=== PATIENT | male | born 1960 | race Caucasian/White ===

== ENCOUNTER 2018-09-12 17:20 | Inpatient (IN) | payer OTHER ==
[~2018-09-12] VITALS: Ht 182.9 cm; Wt 138.4 kg
[~2018-09-12 17:20] MED LIST: AMIODARONE HCL200 M1 PO; ASA81 MG PO; HYDROCODONE-AP1 EA10 PO; LEVEMIR100 UNIT/2 SQ; Z.0.COUMADIN7.5 MG PO; Z.0.LIPITOR40 MG PO; Z.0.LOPRESSOR50 MG PO; Z.0.NIACIN500 MG PO; Z.0.NORVASC5 MG PO
--- OUTSIDE RECORDS SUMMARY | 2018-09-12 17:23 | XMS REPORT | Clinical Summary ---
Author Author [facility] Organization [facility] Address Unknown Phone Unavailable Care Team Providers Care Silk Conditioner Name Role Phone Elisa Munguia MD PCP Allergies No Known Allergies Medications End Date Status Medication Sig Dispensed Refills Start Date Active atorvastatin (LIPITOR) 40 0 MG tablet 8 Active naloxone (Narcan) 1 mg/mL 0 injection 7 Active glimepiride (AMARYL) 4 MG 0 tablet 8 Active metoprolol tartrate 0 (LOPRESSOR) 50 mg tablet 7 Active metFORMIN (GLUCOPHAGE) 0 1,000 mg tablet 8 Active donepezil (ARICEPT) 10 MG 0 tablet 7 Active oxybutynin XL (DITROPAN 0 XL) 15 MG 24 hr tablet 8 Active levothyroxine (SYNTHROID, 0 LEVOXYL) 50 mcg tablet 8 Active TRESIBA FLEXTOUCH U-100 0 100 unit/mL (3 mL) 8 insulin pen Active busPIRone (BUSPAR) 30 MG 0 tablet 8 Active escitalopram (LEXAPRO) 20 0 MG tablet 7 Active DULoxetine (CYMBALTA) 60 0 MG capsule 7 Active gabapentin (NEURONTIN) 0 600 mg tablet 8 Active HYDROcodone-acetaminophen 0 (NORCO) 10-325 mg per 8 tablet Active baclofen (LIORESAL) 10 MG 0 tablet 7 Active methadone (DOLOPHINE) 5 0 MG tablet 8 Active lisinopril 0 (PRINIVIL,ZESTRIL) 20 mg 8 tablet Active hydrALAZINE (APRESOLINE) 0 50 MG tablet 8 Active Problems Not on file Family History Medical History Relation Name Comments Heart disease Father Cancer Maternal Grandfather Heart disease Maternal Grandfather Cancer Maternal Grandmother Diabetes Maternal Grandmother Cancer Mother Diabetes Mother Heart disease Mother Hypertension Mother Diabetes Paternal Grandmother Relation Name Status Comments Father Maternal Grandfather Maternal Grandmother Mother Paternal Grandmother Social History Date Tobacco Use Types Packs/Day Years Used Former Smoker Smokeless Tobacco: Former User Alcohol Use Drinks/Week oz/Week Comments Yes Sex Assigned at Date Recorded Not on file Industry Job Start Date Occupation Not on file Not on file Not on file Travel End Travel History Travel Start No recent travel history available. Last Filed Vital Signs Not on file Plan of Treatment Health Maintenance Due Date Last Done Comments COLONOSCOPY SCREENING 2008 SHINGLES VACCINES (#1) 2008 INFLUENZA VACCINE 10/19/2018 Results Not on fileafter 09/11/2017 Insurance Type Payer Benefit Subscriber ID Effective Phone Address Plan / Dates Group HMO TEXAN[employer] TEXANPLUS xxxxxxxxx 2016-P MARISOL clark Advance Directives Patient has advance care planning documents on file. For more information, renita ku contact: Lj Harrington [address] [place] [address]
--- OUTSIDE RECORDS SUMMARY | 2018-09-12 17:24 | XMS REPORT | Continuity of Care Document ---
Author Author [facility] Organization [facility] Address Unknown Phone Unavailable Care Team Providers Care Vendor Analyst Name Role Phone MD Ezra, Elisa ZAMARRIPA Unavailable Insurance Providers Payer name Policy type / Coverage type Policy ID Covered republican ID Policy Alfaro SELECTC[facility] OF [facility] (MEDICARE REPL Encounters Encounter Performer Location Date Office Visit Elisa Munguia MD [facility] Jul 16, 2014 Problems Problem Effective Dates Problem Status BODY MASS INDEX 39.0-39.9, ADULT Jun 17, 2014 Active [facility] Jun 17, 2014 Active HYPERTENSION Jun 17, 2014 Active DIABETES MELLITUS, TYPE II, UNCONTROLLED, WITH COMPLICATIONS Jun 17, 2014 Active HYPERLIPIDEMIA Jun 17, 2014 Active PERSONAL HISTORY OF TRAUMATIC BRAIN INJURY Jun 17, 2014 Active HYPOTHYROIDISM Jun 17, 2014 Active GAIT IMBALANCE Jun 17, 2014 Active SCREENING FOR COLON CANCER Jun 17, 2014 Active PROSTATE NEOPLASM SCREENING Jun 17, 2014 Active SCREENING FOR GLAUCOMA Jun 17, 2014 Active CAD (CORONARY ARTERY DISEASE) Jun 17, 2014 Active HYPERLIPIDEMIA Jun 17, 2014 Inactive DEPRESSION Jun 17, 2014 Active CHRONIC BACK PAIN Jun 17, 2014 Active CHRONIC PAIN SYNDROME Jun 17, 2014 Active DIABETIC NEUROPATHY Jun 17, 2014 Active SLEEP APNEA, OBSTRUCTIVE Jun 17, 2014 Active HX OF SMOKER Jun 17, 2014 Active FREQUENCY, URINARY Jun 17, 2014 Active SCREENING EXAMINATION FOR VENEREAL DISEASE Jun 17, 2014 Active Procedures Date Description Comments Jun 17, 2014 smoking status Former smoker Jun 17, 2014 diabetic foot check yes Jul 16, 2014 smoking status Former smoker Medications Medication Instructions Start Date Status HYDROCODONE-ACETAMINOPHEN 10-325 MG TABS take one to two tablets by mouth every 6 hours as needed for pain Jun 17, 2014 Active CITALOPRAM HYDROBROMIDE 20 MG TABS take one tablet by mouth daily Jun 17, 2014 Active LEVOTHYROXINE SODIUM 25 MCG TABS take one tablet by mouth daily Jun 17, 2014 Active METOPROLOL TARTRATE 50 MG TABS take one tablet by mouth twice a day Jun 17, 2014 Active GABAPENTIN 800 MG TABS take one tablet by mouth three times a day Jun 17, 2014 Active ASPIRIN EC LO-DOSE 81 MG TBEC take one tablet by mouth daily Jun 17, 2014 Active EQ NICOTINE 4 MG LOZG take one tablet by mouth five times a day Jun 17, 2014 Active METFORMIN HCL 850 MG TABS Take one tablet by mouth two times a day Jul 16, 2014 Active GLIPIZIDE 5 MG TABS Take one tablet by mouth two times a day Jul 16, 2014 Active LISINOPRIL 10 MG TABS Take one tablet by mouth once a day Jul 16, 2014 Active ATORVASTATIN CALCIUM 40 MG TABS Take one tablet by mouth once a day Jul 16, 2014 Active Vital Signs Date Description Test Result Jun 17, 2014 weight E&M - 3141-9 WEIGHT 287.38 lb Jun 17, 2014 respiratory rate E&M - 9279-1 RESP RATE 16 /min Jun 17, 2014 height E&M - 8302-2 HEIGHT 72 in Jun 17, 2014 temperature E&M TEMPERATURE 97.4 deg f Jun 17, 2014 pulse rate E&M - 8867-4 PULSE RATE 71 /min Jun 17, 2014 blood pressure, systolic - 8480-6 BP SYSTOLIC 141 mm Hg Jun 17, 2014 blood pressure, diastolic - 8462-4 BP DIASTOLIC 89 mm Hg Jul 16, 2014 temperature E&M TEMPERATURE 96.9 deg f Jul 16, 2014 respiratory rate E&M - 9279-1 RESP RATE 16 /min Jul 16, 2014 blood pressure, systolic - 8480-6 BP SYSTOLIC 159 mm Hg Jul 16, 2014 blood pressure, diastolic - 8462-4 BP DIASTOLIC 80 mm Hg Jul 16, 2014 pulse rate E&M - 8867-4 PULSE RATE 68 /min Jul 16, 2014 height E&M - 8302-2 HEIGHT 72 in Jul 16, 2014 weight E&M - 3141-9 WEIGHT 289.38 lb Results Date Description Test Name Value Reference Interpretation Status Jun 28, 2014 hemoglobin, blood HGB 16.6 g/dL 14.0-18.0 Jun 28, 2014 hematocrit, blood HCT 49.9 % 42.0-54.0 Jun 28, 2014 platelet count PLATELETS 246 K/CMM /mm3 133-450 Jun 28, 2014 urine color UA COLOR Yellow null Yellow Jun 28, 2014 hemoglobin A1C, blood, as % of total hemoglobin HGBA1C 10.6 % <=5.6 High Jun 28, 2014 thyroid stimulating hormone, serum TSH 1.310 uIU/mL 0.360-3.740 Jun 28, 2014 cholesterol, serum CHOLESTEROL 204 mg/dl <=199 High Jun 28, 2014 triglyceride, serum, fasting TRIGLYCERIDE 321 mg/dl <=149 High Jun 28, 2014 HDL cholesterol, serum HDL 38 mg/dl >=61 Low Jun 28, 2014 LDL cholesterol, serum LDL 102 mg/dl <=99 High Jun 28, 2014 sodium, serum SODIUM 135 MEQ/L mmol/L 135-145 Jun 28, 2014 potassium, serum POTASSIUM 4.1 MEQ/L mmol/L 3.5-5.1 Jun 28, 2014 creatinine, serum CREATININE 1.0 mg/dL 0.5-1.4 Jun 28, 2014 urea nitrogen, blood BUN 15 mg/dL 7-22 Jun 28, 2014 urea nitrogen/creatinine ratio, serum BUN/CREAT 15 null 6-25 Jun 28, 2014 albumin, serum ALBUMIN 3.8 g/dL 3.5-5.0 Jun 28, 2014 calcium, serum CALCIUM 9.8 mg/dL 8.5-10.5 Jun 28, 2014 alanine aminotransferase (SGPT), serum SGPT (ALT) 46 U/L 0-65 Jun 28, 2014 aspartate aminotransferase (SGOT), serum SGOT (AST) 21 U/L 0-37 Jun 28, 2014 alkaline phosphatase, serum ALK PHOS 78 U/L 39-136 Jun 28, 2014 prostate specific antigen PSA 0.56 ng/mL 0.00-4.00 Jul 02, 2014 occult blood, stool (E&M) HEMOCCULT Negative null Negative Jul 03, 2014 occult blood, stool (E&M) HEMOCCULT Negative null Negative Jul 04, 2014 occult blood, stool (E&M) HEMOCCULT Negative null Negative Jun 28, 2014 rapid plasma reagin antibody, serum RPR Non Reactive null Non Reactive
--- OUTSIDE RECORDS SUMMARY | 2018-09-12 17:24 | XMS REPORT | Continuity of Care Document ---
Author Author [facility] Interface Address Unknown Phone Unavailable Problems Problem Status Onset Date Classification Date Reported Comments Source NEED FOR PROPHYLACTIC VACCINATION AGAINST STREPTOCOCCUS PNEUMONIAE [PNEUMOCOCCUS] Active 08/20/2014 Condition 10/25/2014 Medical Group BENIGN PROSTATIC HYPERTROPHY Active 08/20/2014 Condition 10/25/2014 [facility] ERECTILE DYSFUNCTION Active 08/20/2014 Condition 10/25/2014 [facility] BODY MASS INDEX 39.0-39.9, ADULT Active 06/17/2014 Condition 10/25/2014 [facility] PREVENTIVE HEALTH CARE Active 06/17/2014 Condition 10/25/2014 [facility] HYPERTENSION Active 06/17/2014 Condition 10/25/2014 Medical Group DIABETES MELLITUS, TYPE II, WITH COMPLICATIONS Active 06/17/2014 Condition 07/04/2014 Medical [facility] HYPERLIPIDEMIA Active 06/17/2014 Condition 10/25/2014 [facility] PERSONAL HISTORY OF TRAUMATIC BRAIN INJURY Active 06/17/2014 Condition 10/25/2014 Medical Group HYPOTHYROIDISM Active 06/17/2014 Condition 10/25/2014 Medical [facility] GAIT IMBALANCE Active 06/17/2014 Condition 10/25/2014 [facility] SCREENING FOR COLON CANCER Active 06/17/2014 Condition 10/25/2014 [facility] PROSTATE NEOPLASM SCREENING Active 06/17/2014 Condition 10/25/2014 Medical [facility] SCREENING FOR GLAUCOMA Active 06/17/2014 Condition 10/25/2014 Medical Group CAD Active 06/17/2014 Condition 10/25/2014 Medical Group DEPRESSION Active 06/17/2014 Condition 10/25/2014 Medical Group CHRONIC BACK PAIN Active 06/17/2014 Condition 10/25/2014 Medical Group CHRONIC PAIN SYNDROME Active 06/17/2014 Condition 10/25/2014 [facility] Group DIABETIC NEUROPATHY Active 06/17/2014 Condition 10/25/2014 Medical [facility] SLEEP APNEA, OBSTRUCTIVE Active 06/17/2014 Condition 10/25/2014 Medical [facility] HX OF SMOKER Active 06/17/2014 Condition 10/25/2014 Medical Group FREQUENCY, URINARY Active 06/17/2014 Condition 10/25/2014 [facility] SCREENING EXAMINATION FOR VENEREAL DISEASE Active 06/17/2014 Condition 10/25/2014 Medical Group DIABETES MELLITUS, TYPE II, UNCONTROLLED, WITH COMPLICATIONS Active 06/17/2014 Condition 10/25/2014 [facility] Medications Medication Details Route Status Patient Instructions Ordering Provider Order Date Source CIALIS 20 MG TABS May take half of the tablet as needed as directed Active 08/20/2014 [facility] METFORMIN HCL 850 MG TABS Take one tablet by mouth two times a day Active 07/16/2014 [facility] GLIPIZIDE 5 MG TABS Take one tablet by mouth two times a day Active 07/16/2014 [facility] ATORVASTATIN CALCIUM 40 MG TABS Take one tablet by mouth once a day Active 07/16/2014 [facility] LISINOPRIL 10 MG TABS Take one tablet by mouth two times a day Active 07/16/2014 [facility] METFORMIN HCL 850 MG TABS Take one tablet by mouth two times a day Active 07/16/2014 [facility] GLIPIZIDE 5 MG TABS Take one tablet by mouth two times a day Active 07/16/2014 [facility] LISINOPRIL 10 MG TABS Take one tablet by mouth two times a day Active 07/16/2014 [facility] ATORVASTATIN CALCIUM 40 MG TABS Take one tablet by mouth once a day Active 07/16/2014 [facility] LISINOPRIL 10 MG TABS Take one tablet by mouth two times a day Active 07/16/2014 [facility] HYDROCODONE-ACETAMINOPHEN 10-325 MG TABS take one to two tablets by mouth every 6 hours as needed for pain Active 06/17/2014 [facility] CITALOPRAM HYDROBROMIDE 20 MG TABS take one tablet by mouth daily Active 06/17/2014 [facility] LEVOTHYROXINE SODIUM 25 MCG TABS take one tablet by mouth daily Active 06/17/2014 [facility] METOPROLOL TARTRATE 50 MG TABS take one tablet by mouth twice a day Active 06/17/2014 [facility] GABAPENTIN 800 MG TABS take one tablet by mouth three times a day Active 06/17/2014 [facility] ASPIRIN EC LO-DOSE 81 MG TBEC take one tablet by mouth daily Active 06/17/2014 [facility] EQ NICOTINE 4 MG LOZG take one tablet by mouth five times a day Active 06/17/2014 [facility] HYDROCODONE-ACETAMINOPHEN 10-325 MG TABS take one to two tablets by mouth every 6 hours as needed for pain Active 06/17/2014 Medical Group METOPROLOL TARTRATE 50 MG TABS take one tablet by mouth twice a day Active 06/17/2014 Medical Group GABAPENTIN 800 MG TABS take one tablet by mouth three times a day Active 06/17/2014 [facility] Group Allergies, Adverse Reactions, Alerts Substance Category Reaction Severity Reaction type Status Date Reported Comments Source Immunizations Immunization Date Given Site Status Last Updated Comments Source Results Order Name Results Value Reference Range Date Interpretation Comments Source Chemistry HGBA1C 7.7 % - 5.6 10/18/2014 [facility] Chemistry CHOLESTEROL 98 mg/dl - 199 10/18/2014 [facility] Chemistry TRIGLYCERIDE 120 mg/dl - 149 10/18/2014 [facility] Chemistry HDL 31 mg/dl >=61 10/18/2014 Medical [facility] Chemistry LDL 43 mg/dl - 99 10/18/2014 [facility] Chemistry SODIUM 141 MEQ/L mmol/L 135 - 145 10/18/2014 [facility] Chemistry POTASSIUM 4.8 MEQ/L mmol/L 3.5 - 5.1 10/18/2014 [facility] Chemistry CREATININE 1.0 mg/dL 0.5 - 1.4 10/18/2014 [facility] Chemistry BUN 13 mg/dL 7 - 22 10/18/2014 [facility] Chemistry BUN/CREAT 13 6 - 25 10/18/2014 [facility] Chemistry ALBUMIN 3.3 g/dL 3.5 - 5.0 10/18/2014 [facility] Chemistry CALCIUM 8.4 mg/dL 8.5 - 10.5 10/18/2014 [facility] Chemistry SGPT (ALT) 29 U/L 0 - 65 10/18/2014 Medical [facility] Chemistry SGOT (AST) 14 U/L 0 - 37 10/18/2014 [facility] Chemistry ALK PHOS 61 U/L 39 - 136 10/18/2014 [facility] Chemistry HEMOCCULT Negative 07/04/2014 [facility] Chemistry HEMOCCULT Negative 07/03/2014 [facility] Chemistry HEMOCCULT Negative 07/02/2014 Medical [facility] Chemistry HGBA1C 10.6 % - 5.6 06/28/2014 [facility] Chemistry TSH 1.310 uIU/mL 0.360 - 3.740 06/28/2014 [facility] Chemistry CHOLESTEROL 204 mg/dl - 199 06/28/2014 Medical [facility] Chemistry TRIGLYCERIDE 321 mg/dl - 149 06/28/2014 Medical [facility] Chemistry HDL 38 mg/dl >=61 06/28/2014 Medical [facility] Chemistry LDL 102 mg/dl - 99 06/28/2014 [facility] Chemistry SODIUM 135 MEQ/L mmol/L 135 - 145 06/28/2014 [facility] Chemistry POTASSIUM 4.1 MEQ/L mmol/L 3.5 - 5.1 06/28/2014 Medical [facility] Chemistry CREATININE 1.0 mg/dL 0.5 - 1.4 06/28/2014 Medical [facility] Chemistry BUN 15 mg/dL 7 - 22 06/28/2014 Medical [facility] Chemistry BUN/CREAT 15 6 - 25 06/28/2014 Medical [facility] Chemistry ALBUMIN 3.8 g/dL 3.5 - 5.0 06/28/2014 [facility] Chemistry CALCIUM 9.8 mg/dL 8.5 - 10.5 06/28/2014 Medical [facility] Chemistry SGPT (ALT) 46 U/L 0 - 65 06/28/2014 Medical [facility] Chemistry SGOT (AST) 21 U/L 0 - 37 06/28/2014 Medical [facility] Chemistry ALK PHOS 78 U/L 39 - 136 06/28/2014 [facility] Chemistry PSA 0.56 ng/mL 0.00 - 4.00 06/28/2014 Medical [facility] Hematology HGB 16.6 g/dL 14.0 - 18.0 06/28/2014 Medical [facility] Hematology HCT 49.9 % 42.0 - 54.0 06/28/2014 Medical [facility] Hematology PLATELETS 246 K/CMM /mm3 133 - 450 06/28/2014 Medical [facility] Serology RPR Non Reactive 06/28/2014 Medical [facility] Serology RPR Non Reactive 06/28/2014 Medical [facility] Serology RPR Non Reactive 06/28/2014 Medical [facility] Urinalysis UA COLOR Yellow 06/28/2014 Medical [facility] Vital Signs Vital Sign Value Date Comments Source Height 72 08/20/2014 Medical [facility] Weight 289.50 08/20/2014 Medical [facility] Respitory Rate 16 08/20/2014 Medical Group Systolic (mm Hg) 123 08/20/2014 Medical [facility] Diastolic (mm Hg) 87 08/20/2014 Medical [facility] Heart Rate 81 08/20/2014 Medical [facility] Temperature Oral (F) 97.1 F 08/20/2014 Medical Group Temperature Oral (F) 96.9 F 07/16/2014 Medical Group Respitory Rate 16 07/16/2014 [facility] Group Systolic (mm Hg) 159 07/16/2014 Medical Group Diastolic (mm Hg) 80 07/16/2014 Medical Group Heart Rate 68 07/16/2014 Medical Group Height 72 07/16/2014 Medical Group Weight 289.38 07/16/2014 Medical Group Weight 287.38 06/17/2014 Medical Group Respitory Rate 16 06/17/2014 Medical Group Height 72 06/17/2014 [facility] Temperature Oral (F) 97.4 F 06/17/2014 Medical Group Heart Rate 71 06/17/2014 Medical Group Systolic (mm Hg) 141 06/17/2014 [facility] Group Diastolic (mm Hg) 89 06/17/2014 Medical Group Encounters Location Location Details Encounter Type Encounter Number Reason For Visit Attending Provider ADM Date DC Date Status Source [facility] Office Visit [id number] Elisa Langley MD 06/17/2014 06/17/2014 Medical Group [facility] Lab Report [id number] Elisa Langley MD 06/28/2014 06/28/2014 Medical [facility] Medical [facility] Lab Report [id number] Elisa Langley MD 07/04/2014 07/04/2014 Medical [facility] Medical [facility] Office Visit [id number] Elisa Langley MD 07/16/2014 07/16/2014 Medical [facility] Medical [facility] Office Visit [id number] Elisa Langley MD 08/20/2014 08/20/2014 Medical [facility] Medical [facility] Lab Report [id number] Elisa Langley MD 10/18/2014 10/18/2014 Medical [facility] Medical [facility] Office Visit [id number] Elisa Langley MD 10/25/2014 10/25/2014 Medical Group Outpatient [id number] ELISA LANGLEY 10/25/2014 Active [facility] Outpatient [id number] SAULO PERRY 02/24/2015 Active [facility] [id number] ELISA LANGLEY 05/26/2015 Active [facility] [id number] ELISA LANGLEY 07/01/2015 Active [facility] [id number] LEISA LANGLEY 10/17/2015 Active [facility] [id number] ELISA LANGLEY 01/19/2016 Active [facility] [id number] ELISA LANGLEY 04/20/2016 Active [facility] [id number] ELISA LANGLEY 07/15/2016 Active [facility] [id number] ELISA LANGLEY 09/14/2016 Active [facility] [id number] ELISA LANGLEY 10/13/2016 Active [facility] [id number] ELISA LANGLEY 12/22/2016 Active [facility] [id number] ELISA LANGLEY 03/24/2017 Active [facility] [id number] ELISA LANGLEY 06/24/2017 Active [facility] [id number] ELISA LANGLEY 07/22/2017 Active [facility] [id number] ELISA LANGLEY 10/21/2017 Active [facility] [id number] ELISA LANGLEY 01/20/2018 Active [facility] [id number] ELISA LANGLEY 04/21/2018 Active [facility] [id number] Elisa Langley 06/26/2018 Active [facility] [id number] Elisa Langley 07/24/2018 Active [facility] [id number] Elisa Langley 10/23/2018 Active [facility] Procedures Procedure Code Date Perfomer Comments Source diabetic foot check [id number] 06/17/2014 yes Medical Group
--- OUTSIDE RECORDS SUMMARY | 2018-09-12 17:24 | XMS REPORT | Continuity of Care Document ---
Author Author [facility] Organization [facility] Address Unknown Phone Unavailable Care Team Providers Care Federal Mediation Commissioner Name Role Phone MD Ezra, Elisa ZAMARRIPA Unavailable Insurance Providers Payer name Policy type / Coverage type Policy ID Covered libertarian ID Policy Alfaro SELECTCARE OF [place] [facility] [place] [facility]US (MEDICARE REPL Encounters Encounter Performer Location Date Lab Report Elisa Munguia MD [facility] Jun 28, 2014 Problems Problem Effective Dates Problem Status BODY MASS INDEX 39.0-39.9, ADULT Jun 17, 2014 Active [facility] Jun 17, 2014 Active HYPERTENSION Jun 17, 2014 Active DIABETES MELLITUS, TYPE II, WITH COMPLICATIONS Jun 17, 2014 Active HYPERLIPIDEMIA [...] 2014 Active HYPERLIPIDEMIA Jun 17, 2014 Active DEPRESSION Jun 17, 2014 Active CHRONIC BACK [...] Jun 17, 2014 diabetic foot check yes Medications Medication Instructions Start Date Status HYDROCODONE-ACETAMINOPHEN [...] times a day Jun 17, 2014 Active Vital Signs Date Description Test [...] - 8462-4 BP DIASTOLIC 89 mm Hg Results Date Description Test Name Value Reference [...] prostate specific antigen PSA 0.56 ng/mL 0.00-4.00 Jun 28, 2014 rapid plasma reagin antibody, serum RPR Non Reactive null Non Reactive
--- OUTSIDE RECORDS SUMMARY | 2018-09-12 17:24 | XMS REPORT | Continuity of Care Document ---
Author Author [facility] Organization [facility] Address Unknown Phone Unavailable Care Team Providers Care Firearms Expert Name Role Phone MD Ezra, Elisa ZAMARRIPA Unavailable Insurance Providers Payer name Policy type / Coverage type Policy ID Covered alliance party ID Policy Alfaro [place] (MEDICARE REPL Encounters Encounter Performer Location Date Lab Report Elisa Munguia MD [facility] Oct 18, 2014 Problems Problem Effective Dates Problem Status [...] FOR VENEREAL DISEASE Jun 17, 2014 Active NEED FOR PROPHYLACTIC VACCINATION AGAINST STREPTOCOCCUS PNEUMONIAE [PNEUMOCOCCUS] Aug 20, 2014 Active BENIGN PROSTATIC HYPERTROPHY Aug 20, 2014 Active ERECTILE DYSFUNCTION Aug 20, 2014 Active Procedures Date Description Comments Jun 17, 2014 smoking status Former smoker Jun 17, 2014 diabetic foot check yes Jul 16, 2014 smoking status Former smoker Aug 20, 2014 smoking status Former smoker Medications Medication [...] times a day Jul 16, 2014 Active ATORVASTATIN CALCIUM 40 MG TABS Take one tablet by mouth once a day Jul 16, 2014 Active LISINOPRIL 10 MG TABS Take one tablet by mouth two times a day Jul 16, 2014 Active CIALIS 20 MG TABS May take half of the tablet as needed as directed Aug 20, 2014 Active Vital Signs Date Description Test [...] weight E&M - 3141-9 WEIGHT 289.38 lb Aug 20, 2014 height E&M - 8302-2 HEIGHT 72 in Aug 20, 2014 weight E&M - 3141-9 WEIGHT 289.50 lb Aug 20, 2014 respiratory rate E&M - 9279-1 RESP RATE 16 /min Aug 20, 2014 blood pressure, systolic - 8480-6 BP SYSTOLIC 123 mm Hg Aug 20, 2014 blood pressure, diastolic - 8462-4 BP DIASTOLIC 87 mm Hg Aug 20, 2014 pulse rate E&M - 8867-4 PULSE RATE 81 /min Aug 20, 2014 temperature E&M TEMPERATURE 97.1 deg f Results Date Description Test Name Value Reference [...] blood, stool (E&M) HEMOCCULT Negative null Negative Oct 18, 2014 hemoglobin A1C, blood, as % of total hemoglobin HGBA1C 7.7 % <=5.6 High Oct 18, 2014 cholesterol, serum CHOLESTEROL 98 mg/dl <=199 Oct 18, 2014 triglyceride, serum, fasting TRIGLYCERIDE 120 mg/dl <=149 Oct 18, 2014 HDL cholesterol, serum HDL 31 mg/dl >=61 Low Oct 18, 2014 LDL cholesterol, serum LDL 43 mg/dl <=99 Oct 18, 2014 sodium, serum SODIUM 141 MEQ/L mmol/L 135-145 Oct 18, 2014 potassium, serum POTASSIUM 4.8 MEQ/L mmol/L 3.5-5.1 Oct 18, 2014 creatinine, serum CREATININE 1.0 mg/dL 0.5-1.4 Oct 18, 2014 urea nitrogen, blood BUN 13 mg/dL 7-Oct 18, 2014 urea nitrogen/creatinine ratio, serum BUN/CREAT 13 null 6-25 Oct 18, 2014 albumin, serum ALBUMIN 3.3 g/dL 3.5-5.0 Low Oct 18, 2014 calcium, serum CALCIUM 8.4 mg/dL 8.5-10.5 Low Oct 18, 2014 alanine aminotransferase (SGPT), serum SGPT (ALT) 29 U/L 0-65 Oct 18, 2014 aspartate aminotransferase (SGOT), serum SGOT (AST) 14 U/L 0-37 Oct 18, 2014 alkaline phosphatase, serum ALK PHOS 61 U/L 39-136 Jun 28, 2014 rapid plasma reagin antibody, serum RPR Non Reactive null Non Reactive
--- OUTSIDE RECORDS SUMMARY | 2018-09-12 17:24 | XMS REPORT | Continuity of Care Document ---
Author Author [facility] Organization [facility] Address Unknown Phone Unavailable Care Team Providers Care Supervisor Molding Name Role Phone MD Ezra, Elisa ZAMARRIPA Unavailable Insurance Providers Payer name Policy type / Coverage type Policy ID Covered green party ID Policy Alfaro [facility] ([facility]IC[facility] REPL Encounters Encounter Performer Location Date Office Visit Elisa Munguia MD [facility] Jun 17, 2014 Problems Problem Effective Dates Problem Status [...]
--- OUTSIDE RECORDS SUMMARY | 2018-09-12 17:24 | XMS REPORT | Continuity of Care Document ---
Author Author [facility] Organization [facility] Address Unknown Phone Unavailable Care Team Providers Care Fabric Inspector Name Role Phone MD Ezra, Elisa ZAMARRIPA Unavailable Insurance Providers Payer name Policy type / Coverage type Policy ID Covered democrat ID Policy Alfaro SELECTCARE OF [place] - [place] PL[place] (MEDICARE REPL Encounters Encounter Performer Location Date Lab Report Elisa Munguia MD [facility] Jul 04, 2014 Problems Problem Effective Dates Problem Status [...]
--- OUTSIDE RECORDS SUMMARY | 2018-09-12 17:24 | XMS REPORT | Continuity of Care Document ---
Author Author [facility] Organization [facility] Address Unknown Phone Unavailable Care Team Providers Care Architect Name Role Phone MD Ezra, Elisa ZAMARRIPA Unavailable Insurance Providers Payer name Policy type / Coverage type Policy ID Covered democrat ID Policy Alfaro [facility] (MEDICARE REPL Encounters Encounter Performer Location Date Office Visit Elisa Munguia MD [facility] Oct 25, 2014 Problems Problem Effective Dates Problem Status [...]
--- OUTSIDE RECORDS SUMMARY | 2018-09-12 17:24 | XMS REPORT | Continuity of Care Document ---
Author Author [facility] Organization [facility] Address Unknown Phone Unavailable Care Team Providers Care Automotive Worker Name Role Phone MD Ezra, Elisa ZAMARRIPA Unavailable Insurance Providers Payer name Policy type / Coverage type Policy ID Covered democrat ID Policy Alfaro [facility] (MEDICARE REPL Encounters Encounter Performer Location Date Office Visit Elisa Munguia MD [facility] Aug 20, 2014 Problems Problem Effective Dates Problem Status [...]
[2018-09-12] MEDS ORDERED: SODIUM CHLORIDE 0.9% 1000ML 1,000 ML IV STA (18:36)
[2018-09-12 18:51] LABS: BASOPHILS % 0.3 % (0.0-1.0); EOSINOPHILS # (AUTO) 0.3 (0.0-0.4); EOSINOPHILS % 2.4 % (0.0-6.0); HEMATOCRIT 36.8 % (38.2-49.6); HEMOGLOBIN 11.9 g/dL (14.0-18.0); LYMPHOCYTES # (AUTO) 1.8 (1.0-3.2); LYMPHOCYTES % 16.8 % (18.0-39.1); MEAN CORPUSCULAR HEMOGLOBIN 29.1 pg (28-32); MEAN CORPUSCULAR HGB CONC 32.3 g/dL (31-35); MONOCYTES # (AUTO) 0.9 (0.2-0.8); MONOCYTES % 8.2 % (4.4-11.3); NEUTROPHILS # (AUTO) 7.9 (2.1-6.9); NEUTROPHILS % 71.9 % (38.7-80.0); PLATELET COUNT 291 x10e3/uL (140-360); RED BLOOD COUNT 4.09 x10e6/uL (4.3-5.7); RED CELL DISTRIBUTION WIDTH 14.1 % (11.7-14.4)
[2018-09-12 18:56] LABS: INR 0.93
[2018-09-12 19:04] LABS: ALANINE AMINOTRANSFERASE 86 IU/L (0-55); ALBUMIN 3.2 g/dL (3.5-5.0); ALBUMIN/GLOBULIN RATIO 0.8 (0.8-2.0); ALKALINE PHOSPHATASE 65 IU/L (40-150); ANION GAP 13.7 mmol/L (8-16); BLOOD UREA NITROGEN 17 mg/dL (7-26); BUN/CREATININE RATIO 19 (6-25); CALCIUM 9.3 mg/dL (8.4-10.2); CARBON DIOXIDE 27 mmol/L (22-29); CHLORIDE 101 mmol/L (98-107); CREATINE KINASE 70 IU/L (30-200); CREATININE, SERUM 0.88 mg/dL (0.72-1.25); EST GLOMERULAR FILTRATION RATE > 60 ML/MIN (60-); GLUCOSE 164 mg/dL (74-118); MAGNESIUM 2.1 MG/DL (1.3-2.1); POTASSIUM 4.7 mmol/L (3.5-5.1); SODIUM 137 mmol/L (136-145)
--- NOTE | 2018-09-12 19:14 | NUR ---
pt awake alert skin w/d resp nonlab, nad noted. inst on need for urine, verbalized understanding. urinal at bedside. 1L NS bolus started per orders
--- NOTE | 2018-09-12 19:17 | Diagnostic Imaging Report ---
EXAMINATION: CHEST SINGLE (PORTABLE) INDICATION: Shortness of breath ^SOB ^[id number] ^1855 COMPARISON: None FINDINGS: TUBES and LINES: Sternal wires. Likely external wires over the right and upper chest LUNGS: Perihilar peribronchial hazy opacity likely due to pulmonary edema. PLEURA: Possible small pleural effusions. No pneumothorax. HEART AND MEDIASTINUM: Cardiomegaly with pulmonary vascular congestion BONES AND SOFT TISSUES: No acute osseous lesion. Soft tissues are unremarkable. UPPER ABDOMEN: No free air under the diaphragm. IMPRESSION: Findings consistent with congestive heart failure. Follow-up imaging is indicated to document clearing. Signed by: Dr. Thang Lawrence M.D. on 09/12/2018 7:14 PM
--- NOTE | 2018-09-12 19:38 | Diagnostic Imaging Report ---
History:Dizziness Comparison studies: None Technique: Axial images were obtained from the skull base to the vertex. Coronal and sagittal images reconstructed from the axial data. Dose modulation, iterative reconstruction, and/or weight based adjustment of the mA/kV was utilized to reduce the radiation dose to as low as reasonably achievable. Intravenous contrast: None Findings: Scalp/skull: No abnormalities. Extra-axial spaces: No masses. No fluid collections. Brain sulci: Mildly prominent. Ventricles: Mild compensatory dilatation. No hydrocephalus. Parenchyma: No abnormal densities. No masses, hemorrhage, acute or chronic cortical vascular insults. Sellar/suprasellar region: No abnormalities. Craniocervical junction: Patent foramen magnum. No Chiari one malformation. Incidental findings: Atherosclerotic calcifications in the carotid siphons . Impression: 1. No acute abnormalities. 2. Mild age-related generalized volume loss. Signed by: Dr. Juan Porter M.D. on 09/12/2018 7:35 PM
[2018-09-12] MEDS ORDERED: ASPIRIN 81 MG CHEW TAB PO ONE (20:15)
[2018-09-12] MEDS ORDERED: DEXTROSE 50% SYRINGE 50 ML IV PRN (20:15)
[2018-09-12] MEDS ORDERED: SODIUM CHLORIDE FLUSH 10 ML SYR INJ PRN (20:15)
[2018-09-12] MEDS ORDERED: HYDROCODONE/APAP 10MG-325MG TAB PO PRN (20:15)
[2018-09-12] MEDS ORDERED: FUROSEMIDE INJ 10 MG/ML 4 ML VIAL IV NR (20:15)
[2018-09-12] MEDS ORDERED: HYDROCODONE/APAP 10MG-325MG TAB PO NR (20:15)
--- NOTE | 2018-09-12 20:20 | NUR ---
600CC NS INFUSED, STOPPED BOLUS PER DR GUIDRY INSRUCTION
--- OUTSIDE RECORDS SUMMARY | 2018-09-12 20:32 | XMS REPORT ---
Author Author [facility] Address Unknown Phone Unavailable Care Team Providers Care Industrial Machine Assembler Name Role Phone Liya ROBLES Unavailable Unavailable Problems This patient has no known problems. Allergies, Adverse Reactions, Alerts This patient has no known allergies or adverse reactions. Medications This patient has no known medications. Results Test Description Test Time Test Comments Text Results Atomic Results Result Comments CT BRAIN WO 2018-09-12 19:33:00 [place] [address] Patient Name: JANESSA ANTHONY MR #: [id number] : 1960 Age/Sex: 57/M Req #: [id number] Adm Physician: Ordered by: RIGOBERTO ROBLES MD Report #: [id number] Location: ER Room/Bed: Procedure: [id number] CT/CT BRAIN WO Exam Date: 09/12/18 Exam Time: 5 REPORT STATUS: Signed History:Dizziness Comparison studies: None Technique: Axial images were obtained from the skull base to the vertex. Coronal and sagittal images reconstructed from the axial data. Dose modulation, iterative reconstruction, and/or weight based adjustment of the mA/kV was utilized to reduce the radiation dose to as low as reasonably achievable. Intravenous contrast: None Findings: Scalp/skull: No abnormalities. Extra-axial spaces: No masses. No fluid collections. Brain sulci: Mildly prominent. Ventricles: Mild compensatory dilatation. No hydrocephalus. Parenchyma: No abnormal densities. No masses, he morrhage, acute or chronic cortical vascular insults. Sellar/suprasellar region: No abnormalities. Craniocervical junction: Patent foramen magnum. No Chiari one malformation. Incidental findings: Atherosclerotic calcifications in the carotid siphons . Impression: 1. No acute abnormalities. 2. Mild age-related generalized volume loss. Signed by: Dr. Juan Porter M.D. on 09/12/2018 7:35 PM Dictated By: JUAN PORTER MD, MD 34 Transcribed By: JAMILAH on 09/12/181934 COPY TO: RIGOBERTO ROBLES MD CHEST SINGLE (PORTABLE) 2018-09-12 19:13:00 [place] [address] Patient Name: JANESSA ANTHONY MR #: [id number] : 1960 Age/Sex: 57/M Req #: [id number] Adm Physician: Ordered by: IRGOBERTO ROBLES MD Report #: [id number] Location: ER Room/Bed: Procedure: [id number] DX/CHEST SINGLE (PORTABLE) Exam Date: 09/12/18 Exam Time: 1854 REPORT STATUS: Signed EXAMINATION: CHEST SINGLE (PORTABLE) INDICATI ON: Shortness of breath SOB [id number] COMPARISON: None FINDINGS: TUBES and LINES: Sternal wires. Likely external wires over the right and upper chest LUNGS: Perihilar peribronchial hazy opacity likely due to pulmonary edema. PLEURA: Possible small pleural effusions. No pneumothorax. HEART AND MEDIASTINUM: Cardiomegaly with pulmonary vascular congestion BONES AND SOFT TISSUES: No acute osseous lesion. Soft tissues are unremarkable. UPPER ABDOMEN: No free air under the diaphragm. IMPRESSION: Findings consistent with congestive heart failure. Follow-up imaging is indicated to document clearing. Signed by: Dr. Thang Lawrence M.D. on 09/12/2018 7:14 PM Dictated By: THANG LAWRENCE MD, MD 13 Transcribed By: JAMILAH on 09/12/181913 COPY TO: RIGOBERTO ROBLES MD
--- OUTSIDE RECORDS SUMMARY | 2018-09-12 20:32 | XMS REPORT | Clinical Summary ---
Author Author [facility] Organization [facility] Address Unknown Phone Unavailable Care Team Providers Care Internet Architect Name Role Phone Elisa Munguia MD PCP [...] planning documents on file. For more information, ernita ku contact: Lj Harrington [address] [place] [address]
[2018-09-12] MEDS ORDERED: LEVOTHYROXINE75 MCG PO (20:37)
[2018-09-12] MEDS ORDERED: METOPROLOL TART50 MG PO (20:37)
[2018-09-12] MEDS ORDERED: HYDRALAZINE HC100 MG PO (20:37)
[2018-09-12] MEDS ORDERED: METHADONE HCL5 MG PO (20:37)
[2018-09-12] MEDS ORDERED: DIVALPROEX SOD500 MG PO (20:37)
[2018-09-12] MEDS ORDERED: GLIMEPIRIDE4 MG PO (20:37)
[2018-09-12] MEDS ORDERED: TRESIBA SC (20:37)
[2018-09-12] MEDS ORDERED: ATORVASTATIN CA40 MG PO (20:37)
[2018-09-12] MEDS ORDERED: METFORMIN HCL1000 MG PO (20:37)
[2018-09-12] MEDS ORDERED: BUSPIRONE HCL30 MG PO (20:37)
[2018-09-12] MEDS ORDERED: HYDROXYZINE HCL25 MG PO (20:37)
[2018-09-12] MEDS ORDERED: OXYBUTYNIN CHLO15 MG PO (20:37)
[2018-09-12] MEDS ORDERED: HYDROCODON-ACE1 EAC9 PO (20:37)
[2018-09-12] MEDS ORDERED: GABAPENTIN600 MG PO (20:37)
[2018-09-12] MEDS ORDERED: NOVOLOG100 UNITS1 (20:37)
[2018-09-12] MEDS: INSULIN REGULAR, HUMAN 100 UNIT/1 ML 3ML VIAL SQ SCH (21:00)
[2018-09-12] MEDS ORDERED: LISINOPRIL5 MG PO (21:16)
[2018-09-12] MEDS ORDERED: CYMBALTA30 MG PO (21:16)
[2018-09-12] MEDS ORDERED: BACLOFEN10 MG PO (21:16)
[2018-09-12] MEDS ORDERED: ASPIRIN325 MG PO (21:16)
[2018-09-12 21:18] LABS: BILIRUBIN,URINE NEGATIVE (NEGATIVE); CLARITY,URINE SL CLOUDY (CLEAR); COLOR,URINE YELLOW (YELLOW); KETONES,URINE NEGATIVE (NEGATIVE); LEUKOCYTE ESTERASE ,URINE SMALL (NEGATIVE); NITRITE,URINE NEGATIVE (NEGATIVE); PROTEIN,URINE DIPSTICK NEGATIVE (NEGATIVE); URINE UROBILINOGEN 0.2 mg/dL (0.2 - 1)
--- NOTE | 2018-09-12 21:35 | NUR ---
Patient arrived from er in a wheel chair to the unit.aaox3.ambulates with cane.assessment done.no resp.distress.has shortness of breath.back pain voiced @ 8/10.lower extremity edema +1 noted.voided.iv to right ac #20 g is patent.oriented to the unit.bed locked and in lowest position.bed alarm on.phone and call light within reach.instructed to call for assistance as needed.keep monitor the pt.
[2018-09-12 21:36] LABS: BACTERIA,URINE MODERATE /HPF; EPITHELIAL CELLS,URINE MODERATE /LPF; WBC,URINE (MAN) >50 /HPF (0-5)
[2018-09-12 21:38] VITALS: BP 128/92
[2018-09-12 22:00] VITALS: BP 128/92
[2018-09-12 22:44] VITALS: BP 128/92
[2018-09-12] MEDS ORDERED: HYDROXYZINE HCL 25 MG TAB PO PRN (22:45)
[2018-09-12] MEDS ORDERED: METHADONE HCL 5 MG TAB PO ONE (23:15)
[2018-09-13 03:18] LABS: BASOPHILS % 0.4 % (0.0-1.0); EOSINOPHILS # (AUTO) 0.3 (0.0-0.4); HEMATOCRIT 34.1 % (38.2-49.6); HEMOGLOBIN 10.7 g/dL (14.0-18.0); LYMPHOCYTES # (AUTO) 2.7 (1.0-3.2); LYMPHOCYTES % 31.9 % (18.0-39.1); MEAN CORPUSCULAR HEMOGLOBIN 28.7 pg (28-32); MEAN CORPUSCULAR HGB CONC 31.4 g/dL (31-35); MEAN CORPUSCULAR VOLUME 91.4 fL (81-99); MONOCYTES # (AUTO) 0.8 (0.2-0.8); MONOCYTES % 9.7 % (4.4-11.3); NEUTROPHILS # (AUTO) 4.7 (2.1-6.9); NEUTROPHILS % 54.6 % (38.7-80.0); PLATELET COUNT 238 x10e3/uL (140-360); RED BLOOD COUNT 3.73 x10e6/uL (4.3-5.7); RED CELL DISTRIBUTION WIDTH 13.8 % (11.7-14.4)
--- NOTE | 2018-09-13 03:18 | NUR ---
Blood paige and sent to the lab .pt tolerated well.
[2018-09-13 03:44] LABS: CREATINE KINASE MB 2.4 ng/mL (0-5.0)
[2018-09-13 04:00] VITALS: BP 96/56
[2018-09-13 04:08] LABS: ALANINE AMINOTRANSFERASE 69 IU/L (0-55); ALBUMIN/GLOBULIN RATIO 0.8 (0.8-2.0); ALKALINE PHOSPHATASE 60 IU/L (40-150); ANION GAP 14.2 mmol/L (8-16); BLOOD UREA NITROGEN 15 mg/dL (7-26); BUN/CREATININE RATIO 17 (6-25); CARBON DIOXIDE 28 mmol/L (22-29); CHLORIDE 99 mmol/L (98-107); CREATININE, SERUM 0.86 mg/dL (0.72-1.25); EST GLOMERULAR FILTRATION RATE > 60 ML/MIN (60-); GLUCOSE 85 mg/dL (74-118); POTASSIUM 4.2 mmol/L (3.5-5.1); SODIUM 137 mmol/L (136-145)
--- NOTE | 2018-09-13 05:01 | NUR ---
Tele rhythm shows Afib with RVR.EKG stat taken.notified to .ordered to cardiology consultation.Metoprolol 50 mg morning dose given.keep monitor the pt.
[2018-09-13] MEDS: LEVOTHYROXINE SODIUM 75 MCG TAB PO SCH (05:58)
[2018-09-13] MEDS ORDERED: METHADONE HCL 5 MG TAB PO SCH (06:00)
--- NOTE | 2018-09-13 07:00 | NUR ---
Bed side report given to the oncoming rn.walking rounds done.stable condition.
[2018-09-13] MEDS: INSULIN REGULAR, HUMAN 100 UNIT/1 ML 3ML VIAL SQ SCH ×4 (07:30→20:45)
--- NOTE | 2018-09-13 08:00 | NUR ---
MD ALCALA INTO SEE PT, DISCUSSED POC
[2018-09-13 08:23] VITALS: BP 96/71
[2018-09-13] MEDS ORDERED: HYDRALAZINE HCL 100 MG TABLET PO SCH (09:00)
[2018-09-13] MEDS ORDERED: BUSPIRONE HCL 10 MG TABLET PO SCH (09:00)
[2018-09-13] MEDS ORDERED: BACLOFEN 10 MG TAB PO SCH (09:00)
[2018-09-13] MEDS ORDERED: METOPROLOL TARTRATE 50 MG TAB PO SCH (09:00)
[2018-09-13] MEDS ORDERED: DEPAKOTE DELAYED-RELEASE TAB 500 MG PO SCH (09:00)
[2018-09-13] MEDS: LISINOPRIL 2.5 MG TAB PO SCH (09:00)
[2018-09-13] MEDS ORDERED: FUROSEMIDE INJ 10 MG/ML 4 ML VIAL IV SCH (09:00)
--- NOTE | 2018-09-13 09:55 | NUR ---
MD JACKMAN INTO SEE PT, DISCUSSED POC, STATES WILL CHANGE SOME MEDICATIONS, PT NOW SITTING ON SIDE OF BED, CALL LIGHT WITHIN REACH, EDUCATED TO NOT GET OOB WITHOUT CALLING FOR ASSISTANCE, PT VERBALIZED UNDERSTANDING
[2018-09-13 10:15] VITALS: BP 98/61
--- NOTE | 2018-09-13 10:45 | NUR ---
HOME MEDIATIONS CLARIFIED WITH PT, EDUCATED ON NEW MEDICATIONS ORDERED BY MD KAI MD AWARE OF PT RUNNING AFIB 112-140'S, SITTING ON SIDE OF BED, CALL LIGHT WITHIN REACH
[2018-09-13] MEDS: ENOXAPARIN SOD INJ 60 MG/0.6 ML SYR SC SCH ×2 (11:00→22:41)
[2018-09-13] MEDS: GABAPENTIN 400 MG CAP PO SCH ×3 (11:00→20:45)
[2018-09-13] MEDS: OXYBUTYNIN CHLORIDE 5 MG TAB PO SCH (11:00)
[2018-09-13] MEDS: AMIODARONE HCL 200 MG TAB PO SCH (11:00)
[2018-09-13] MEDS: ASPIRIN 325 MG TAB PO SCH (11:00)
[2018-09-13] MEDS: DULOXETINE HCL 30 MG DELAYED RELEASE PO SCH ×3 (11:00→20:45)
[2018-09-13 11:37] LABS: CREATINE KINASE MB 2.3 ng/mL (0-5.0)
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
[2018-09-13 12:28] VITALS: BP 135/84
--- NOTE | 2018-09-13 13:52 | NUR ---
SPOKE WITH MD JACKMAN, MADE AWARE PT HR IS 120'S-140'S BPM, ORDERS NOTED
[2018-09-13] MEDS ORDERED: DIGOXIN INJ 0.25 MG/ML 2 ML AMP IV ONE (14:30)
--- NOTE | 2018-09-13 14:30 | NUR ---
SITTING UP IN BED, VOICES NO NEEDS AT THIS TIME, CALL LIGHT WITHIN REACH
--- NOTE | 2018-09-13 14:48 | NUR ---
PT CONVERTED BACK TO SINUS AT THIS TIME, 1430 ONE TIME DOSE OF DIGOXIN HELD FOR NOW , WILL MONITOR
--- NOTE | 2018-09-13 16:12 | NUR ---
TELEPHONED MD GRIFFIN TO MAKE AWARE THAT PT CONVERTED TO SR AND THAT PT DID NOT GET DIGOXIN, AWAITING CALL BACK
--- NOTE | 2018-09-13 16:35 | NUR ---
Nutrition Screen Note RD Recommendation for Physician: -Rec adding cardiac to ADA 1800 diet -Pt refused diet education. Plan of Care: RD following, monitoring for tolerance and adequacy Nutrition reason for involvement: Diagnosis Primary Diagnose(s): CHF, dizziness, dyspnea PMH: morbid obesity, hypertension, dyslipidemia, and diabetes mellitus type 2, CAD status post aortocoronary bypass, 4-vessel Ht: 72in Wt: 304.38lb BMI: 41.3kg/m2 IBW: 178lb RD Assessment: (09/13) Chart reviewed. Labs and meds reviewed. 57yo M, who was admitted for fatigue, tired, shortness of breath, and lightheadedness. CXR revealed CHF. Currently on diuretics. Visited pt in the room. Pt reports good appetite without nausea or vomiting. Normal BM. Pt has some missing teeth but refused texture modification. Pt denies any swallowing difficulty. Weight has been stable. Pt refuses diet education. Will continue to monitor and follow. Current Diet: ADA diet Malnutrition Evaluation (09/13/2018) The patient does not meet criteria for a specified degree of malnutrition at this time. Will re-evaluate at follow-up as appropriate. Diet Education Needs Assessment: Diet education indicated, pt is not interested. Nutrition Care Level: low Signed: Kelly Castellanos, MS, RD, LD
[2018-09-13 16:45] VITALS: BP 105/69
--- NOTE | 2018-09-13 16:51 | NUR ---
SPOKE WITH MD QUINN, MADE AWARE THAT PT IS STILL IN SR AT THIS TIME AND THAT IV DIGOXIN WAS NOT GIVEN, ORDERS NOTED TO DC IT
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
[2018-09-13] MEDS: FUROSEMIDE INJ 10 MG/ML 4 ML VIAL IV SCH (18:30)
--- NOTE | 2018-09-13 18:30 | NUR ---
PT VOICES NO NEEDS AT THIS TIME, CALL LIGHT WITHIN REACH
--- NOTE | 2018-09-13 19:11 | NUR ---
WALKING ROUNDS PERFORMED, RECEIVED PT LAYING SEMI FOWLERS IN BED, AAOX3, RR EVEN AND NON-LABORED, O2 BY NC AT 2L. NO S/SX OF DISTRESS NOTED. LEFT PT LAYING SEMI FOWLERS IN BED, BED IN LOW LOCKED POSITION, SIDE RAILS UPX2, CALL LIGHT AND PHONE WITHIN REACH.
[2018-09-13 20:00] VITALS: BP 112/72
[2018-09-13] MEDS: DEPAKOTE DELAYED-RELEASE TAB 500 MG PO SCH (20:45)
[2018-09-13] MEDS: METOPROLOL TARTRATE 50 MG TAB PO SCH (20:45)
[2018-09-13] MEDS: BUSPIRONE HCL 10 MG TABLET PO SCH (20:45)
[2018-09-13] MEDS: ATORVASTATIN 40 MG TAB PO SCH (20:45)
[2018-09-13] MEDS: METHADONE HCL 5 MG TAB PO PRN (22:41)
[2018-09-14] VITALS (8 sets, daily range): BP systolic 97–121; BP diastolic 55–89
[2018-09-14] MEDS: HYDROCODONE/APAP 10MG-325MG TAB PO PRN ×2 (01:35→15:58)
--- NOTE | 2018-09-14 04:05 | NUR ---
PT CONVERTED BACK TO AFIB 120-130'S. SPOKE WITH MD JACKMAN, ORDERS RECEIVED TO GIVE 0900 DOSE OF METOPROLOL NOW.
[2018-09-14] MEDS: LEVOTHYROXINE SODIUM 75 MCG TAB PO SCH (04:10)
[2018-09-14] MEDS: METOPROLOL TARTRATE 50 MG TAB PO SCH ×2 (04:10→21:14)
[2018-09-14] MEDS: BACLOFEN 10 MG TAB PO PRN ×2 (04:15→22:28)
--- NOTE | 2018-09-14 04:30 | NUR ---
PROVIDED PT WITH WALKER AND STANDY BY ASSIST PROVIDED FOR PT TO AMBULATE TO BATHROOM AND TO RECLINER. LEFT PT SITTING IN RECLINER WITH CALL LIGHT AND PHONE WITHIN REACH.
[2018-09-14] MEDS: FUROSEMIDE INJ 10 MG/ML 4 ML VIAL IV SCH ×2 (05:00→18:22)
[2018-09-14 06:16] LABS: BASOPHILS % 0.4 % (0.0-1.0); EOSINOPHILS # (AUTO) 0.4 (0.0-0.4); EOSINOPHILS % 4.4 % (0.0-6.0); LYMPHOCYTES # (AUTO) 2.9 (1.0-3.2); LYMPHOCYTES % 28.5 % (18.0-39.1); MEAN CORPUSCULAR HEMOGLOBIN 28.8 pg (28-32); MEAN CORPUSCULAR HGB CONC 31.4 g/dL (31-35); MEAN CORPUSCULAR VOLUME 91.6 fL (81-99); MONOCYTES # (AUTO) 0.9 (0.2-0.8); MONOCYTES % 8.4 % (4.4-11.3); NEUTROPHILS # (AUTO) 5.8 (2.1-6.9); NEUTROPHILS % 57.9 % (38.7-80.0); PLATELET COUNT 259 x10e3/uL (140-360); RED BLOOD COUNT 3.82 x10e6/uL (4.3-5.7); RED CELL DISTRIBUTION WIDTH 13.9 % (11.7-14.4)
[2018-09-14 06:40] LABS: ANION GAP 13.1 mmol/L (8-16); BLOOD UREA NITROGEN 18 mg/dL (7-26); BUN/CREATININE RATIO 18 (6-25); CALCIUM 9.1 mg/dL (8.4-10.2); CARBON DIOXIDE 34 mmol/L (22-29); CHLORIDE 95 mmol/L (98-107); CREATININE, SERUM 0.98 mg/dL (0.72-1.25); EST GLOMERULAR FILTRATION RATE > 60 ML/MIN (60-); GLUCOSE 133 mg/dL (74-118); SODIUM 137 mmol/L (136-145)
[2018-09-14 06:58] LABS: POTASSIUM 5.1 mmol/L (3.5-5.1)
--- NOTE | 2018-09-14 07:28 | NUR ---
Received patient this morning and alert and responsive, siting on recliner in the room, telemetry monitoring, no immediate cardiovascular events but has been running Afib with RVR last night. Will medicate per orders and monitor. Call light within reach.
[2018-09-14] MEDS: INSULIN REGULAR, HUMAN 100 UNIT/1 ML 3ML VIAL SQ SCH ×4 (07:30→21:14)
[2018-09-14] MEDS: GABAPENTIN 400 MG CAP PO SCH ×3 (08:35→21:13)
[2018-09-14] MEDS: AMIODARONE HCL 200 MG TAB PO SCH (08:35)
[2018-09-14] MEDS: DEPAKOTE DELAYED-RELEASE TAB 500 MG PO SCH ×2 (08:35→21:13)
[2018-09-14] MEDS: BUSPIRONE HCL 10 MG TABLET PO SCH ×2 (08:35→21:13)
[2018-09-14] MEDS: ASPIRIN 325 MG TAB PO SCH (08:35)
[2018-09-14] MEDS: OXYBUTYNIN CHLORIDE 5 MG TAB PO SCH (08:35)
[2018-09-14] MEDS: DULOXETINE HCL 30 MG DELAYED RELEASE PO SCH ×3 (08:35→21:13)
[2018-09-14] MEDS: LISINOPRIL 2.5 MG TAB PO SCH (08:36)
[2018-09-14] MEDS: ENOXAPARIN SOD INJ 60 MG/0.6 ML SYR SC SCH (09:50)
[2018-09-14] MEDS: METHADONE HCL 5 MG TAB PO PRN ×2 (09:53→22:29)
[2018-09-14] MEDS ORDERED: ENOXAPARIN SOD INJ 120 MG/0.8 ML SYR SC SCH (10:00)
--- NOTE | 2018-09-14 11:30 | NUR ---
Patient per telephone assembler converted to SR at 65 from AFIB at 10:30am this morning and has been holding rhythm in the mean time
--- NOTE | 2018-09-14 16:03 | Progress Note ---
DATE: 09/14/2018 Cardiology Progress Note SUBJECTIVE: Shortness of breath and dyspnea on exertion still occurring with ambulation to restroom, however, overall improving. Denies chest pain. Episodes of intermittent sinus rhythm transition to atrial fibrillation with RVR noted on telemetry. OBJECTIVE: VITAL SIGNS: Temperature 96.6, heart rate 67, respiratory rate 20, blood pressure 97/55, O2 saturation 93% on nasal cannula 3 L/minute. GENERAL: In no acute distress, alert. NECK: JVD elevated to mid neck, sitting upright. No carotid bruits. CHEST: Bibasilar rales. Decreased breath sounds. CARDIOVASCULAR: Irregularly irregular rate and rhythm. Normal S1, S2. No S3 or S4. Systolic ejection murmur. ABDOMEN: Soft, obese. EXTREMITIES: With 1+ bilateral lower extremity edema. Warm distal extremities. MEDICATIONS: Cardiovascular medications reviewed. 1. Methadone p.r.n. 5 mg every 8 hours for severe pain. Most recent dose given on 09/14/2018 at 0953 hours. 2. Lisinopril 2.5 mg daily. 3. Amiodarone 200 mg daily. 4. Aspirin 325 mg daily. 5. Furosemide 40 mg IV every 12 hours. 6. Metoprolol tartrate 50 mg every 12 hours. 7. Lovenox 120 mg subcu q.12 hours. STUDIES: White blood cells 10, hemoglobin 11, platelets 259. INR 0.9. Sodium 137, potassium 5.1, chloride 95, bicarbonate 34, BUN 18, creatinine 0.98, glucose 133, calcium 9.1. ASSESSMENT: 1. A 57-year-old man presents with atrial fibrillation and rapid ventricular response, paroxysmal. 2. Hlqsz-wl-awgxhpo severe systolic heart failure in the setting of RVR with LVEF 20% to 25%. Noted LV dilatation of chamber diameter as well as RV systolic dysfunction. Suspect a component of tachycardia induced cardiomyopathy and chronic systolic heart failure. 3. Morbid obesity. 4. Type 2 diabetes mellitus. 5. Hypertension. 6. Dyslipidemia. 7. History of pulmonary embolism in 2011. 8. Coronary artery disease with history of aortocoronary bypass in 2007, 4-vessel. RECOMMENDATIONS: 1. I have uptitrated rate control strategy as much as blood pressure allows. Given the use of methadone and concern for QT prolongation, this limits antiarrhythmic use. In the long-term at this point, can consider gradual weaning off methadone and then options for antiarrhythmia can be revisited. 2. I have discussed with the patient option of DC cardioversion guided by GIGI should symptoms persist after volume optimization, particularly if RVR persists. However, the patient has had episodes of return to sinus rhythm alternating with paroxysmal atrial fibrillation recurrently while in-house, which raises concern about significant benefit from cardioversion without concomitant antiarrhythmic use. 3. Cardiac electrophysiology for consideration of ablation as outpatient has been also discussed with the patient and advised upon discharge. This will be part of recommendations. 4. Continue IV diuretics as the patient still remains volume overloaded with dyspnea on exertion to minimal activity. 5. Continue rest of cardiovascular medications. Magnus Blanchard MD AFV/MODL /[id number]
[2018-09-14] MEDS: ATORVASTATIN 40 MG TAB PO SCH (21:13)
[2018-09-14] MEDS: ENOXAPARIN SOD INJ 120 MG/0.8 ML SYR SC SCH (22:28)
[2018-09-15] VITALS (9 sets, daily range): BP systolic 102–127; BP diastolic 58–90
[2018-09-15] MEDS: LEVOTHYROXINE SODIUM 75 MCG TAB PO SCH (05:41)
[2018-09-15] MEDS: FUROSEMIDE INJ 10 MG/ML 4 ML VIAL IV SCH ×2 (05:41→17:34)
[2018-09-15] MEDS: HYDROCODONE/APAP 10MG-325MG TAB PO PRN (05:54)
--- NOTE | 2018-09-15 06:57 | NUR ---
The patient is laying in bed watching TV. Reports his pain is already much better 08/28. NC in place at 2L. IV is patent. HOB elevated, Bed low and wheels locked.
--- NOTE | 2018-09-15 07:34 | NUR ---
RECEIVED PATIENT RESTING IN BED NO SIGNS OF DISTRESS. BED LOW, WHEELS LOCKED, SIDE RAILS X2. CALL LIGHT IN REACH WILL CONTINUE TO MONITOR PATIENT.
[2018-09-15] MEDS: GABAPENTIN 400 MG CAP PO SCH ×3 (08:58→21:32)
[2018-09-15] MEDS: BUSPIRONE HCL 10 MG TABLET PO SCH ×2 (08:58→21:32)
[2018-09-15] MEDS: ASPIRIN 325 MG TAB PO SCH (08:58)
[2018-09-15] MEDS: METOPROLOL TARTRATE 50 MG TAB PO SCH ×2 (08:58→21:38)
[2018-09-15] MEDS: METHADONE HCL 5 MG TAB PO PRN ×2 (08:58→23:46)
[2018-09-15] MEDS: DEPAKOTE DELAYED-RELEASE TAB 500 MG PO SCH ×2 (08:58→21:32)
[2018-09-15] MEDS: DULOXETINE HCL 30 MG DELAYED RELEASE PO SCH ×3 (08:58→21:32)
[2018-09-15] MEDS: OXYBUTYNIN CHLORIDE 5 MG TAB PO SCH (08:58)
[2018-09-15] MEDS: LISINOPRIL 2.5 MG TAB PO SCH (08:59)
[2018-09-15] MEDS: INSULIN REGULAR, HUMAN 100 UNIT/1 ML 3ML VIAL SQ SCH ×4 (09:13→21:20)
--- NOTE | 2018-09-15 10:00 | NUR ---
PATIENT A/O X3, EVEN RESPIRATIONS ON 3LNC. BOWEL SOUNDS ACTIVE, SKIN INTACT, NO EDEMA. PATIENT AMBULATES WITH STANDBY ASSIST AND WALKER. RIGHT AC 20 GAUGE IV SL. IV INTACT AND PATENT. TELEMETRY #9 SR 73. CALL LIGHT IN REACH. WILL CONTINUE TO MONITOR PATIENT.
--- NOTE | 2018-09-15 10:12 | NUR ---
EDUCATED ABOUT IMM, SIGNED, FILED IN CHART, WITH COPY LEFT WITH FAMILY AT BEDSIDE.
[2018-09-15] MEDS: ENOXAPARIN SOD INJ 120 MG/0.8 ML SYR SC SCH ×2 (10:33→21:32)
--- NOTE | 2018-09-15 12:38 | Progress Note ---
DATE: 09/15/2018 SUBJECTIVE: Feels better overall today. OBJECTIVE: VITAL SIGNS: Temperature 96.1, heart rate 69, blood pressure 110/61, respiratory rate 20, O2 saturation 100. BMI 41. GENERAL: In no acute distress. Alert. NECK: No JVD up to 30-degree elevation today. No carotid bruits. CHEST: Clear to auscultation bilaterally today. CARDIOVASCULAR: Regular rate and rhythm. Normal S1, S2. Distant heart sounds. No S3 or S4. Systolic ejection murmur 2/6 noted. ABDOMEN: Soft, obese. EXTREMITIES: No edema. Warm distal extremities. Hyperpigmented skin to lower extremities. MEDICATIONS: Cardiovascular medications have been reviewed. 1. Methadone 5 mg every 8 hours p.r.n. severe pain. 2. Lisinopril 2.5 mg daily. 3. Amiodarone 200 mg daily. 4. Aspirin 325 mg daily. 5. Furosemide 40 mg IV every 12 hours. 6. Metoprolol tartrate 50 mg every 12 hours. 7. Lovenox 120 mg subcu every 12 hours. STUDIES: Sodium 137, potassium 5.1, chloride 95, bicarbonate 34, BUN 18, creatinine 0.98, glucose 133. White blood cells 10, hemoglobin 11, and platelets 259. INR 0.9. AST 27, ALT 69. ASSESSMENT: 1. A 57-year-old man with history of atrial fibrillation, paroxysmal. 2. Ogqdc-cd-dqgjepz severe systolic heart failure in the setting of rapid ventricular response, on echo had ejection fraction of 20% to 25%, also LV chamber dilatation as well as decreased in RV systolic function. Suspecting component of tachycardia-induced cardiomyopathy on top of chronic systolic heart failure. 3. Morbid obesity. 4. Diabetes mellitus type 2. 5. Hypertension. 6. Dyslipidemia. 7. History of pulmonary embolism in 2011. 8. Coronary artery disease with history of aortocoronary bypass in 2007, for 4-vessel. RECOMMENDATIONS: 1. Atrial fibrillation ralph adequate rate control today, converting back and forth sinus, overall better with medications. 2. From a volume standpoint, improved. 3. Upon discharge, Eliquis 5 mg every 12 hours advised transitioning out of Lovenox. 4. I have discussed with the patient the following plan of care, outpatient consideration of cardiac electrophysiology evaluation for PVI in the setting of systolic heart failure and rxhorpxjw-uc-kflylws atrial fibrillation with limited options for therapy, on methadone and low normal blood pressure rate, this strategy would be most favorable. 5. Continue heart failure optimization with beta-justin and EMMANUEL inhibitor low dose. Of note, potassium limiting further up titration of EMMANUEL inhibitor or transitioning to Entresto. 6. Upon discharge, Lasix 40 mg p.o. b.i.d., daily weights, low-sodium and low-potassium diet. Outpatient followup in one week. As outpatient we will discuss further coronary assessment and heart failure optimization. MD WhitneyV/MODL /[id number]
--- NOTE | 2018-09-15 19:29 | NUR ---
Report taken from am rn .walking rounds done.lyeing quietly in the bed.
[2018-09-15] MEDS: ATORVASTATIN 40 MG TAB PO SCH (21:32)
--- NOTE | 2018-09-15 23:35 | NUR ---
Assessment done.no resp.distress.no pain voiced.patient refused to put bed alarm on.bed locked and in lowest position.phone and call light within reach.instructed to call for assistance as needed.phone and call light within reach.instructed to call for assistance as needed.
[2018-09-16] MEDS: HYDROCODONE/APAP 10MG-325MG TAB PO PRN ×2 (02:38→14:54)
[2018-09-16 03:56] VITALS: BP 93/62
[2018-09-16] MEDS: LEVOTHYROXINE SODIUM 75 MCG TAB PO SCH (05:43)
[2018-09-16] MEDS: FUROSEMIDE INJ 10 MG/ML 4 ML VIAL IV SCH (05:43)
--- NOTE | 2018-09-16 07:00 | NUR ---
BEDSIDE REPORT RECEIVED FROM CARISSA CISNEROS. PT DENIES NEEDS AT THIS TIME.
[2018-09-16] MEDS: INSULIN REGULAR, HUMAN 100 UNIT/1 ML 3ML VIAL SQ SCH ×2 (07:30→12:06)
[2018-09-16 08:00] VITALS: BP 93/62
[2018-09-16 08:05] VITALS: BP 129/80
[2018-09-16] MEDS: BUSPIRONE HCL 10 MG TABLET PO SCH (08:40)
[2018-09-16] MEDS: OXYBUTYNIN CHLORIDE 5 MG TAB PO SCH (08:40)
[2018-09-16] MEDS: DEPAKOTE DELAYED-RELEASE TAB 500 MG PO SCH (08:40)
[2018-09-16] MEDS: DULOXETINE HCL 30 MG DELAYED RELEASE PO SCH ×2 (08:40→14:23)
[2018-09-16] MEDS: ASPIRIN 325 MG TAB PO SCH (08:40)
[2018-09-16] MEDS: LISINOPRIL 2.5 MG TAB PO SCH (08:41)
[2018-09-16] MEDS: GABAPENTIN 400 MG CAP PO SCH ×2 (08:41→14:23)
[2018-09-16] MEDS: METOPROLOL TARTRATE 50 MG TAB PO SCH (08:41)
[2018-09-16] MEDS: ENOXAPARIN SOD INJ 120 MG/0.8 ML SYR SC SCH (09:59)
[2018-09-16] MEDS: METHADONE HCL 5 MG TAB PO PRN (10:30)
--- NOTE | 2018-09-16 10:58 | NUR ---
Signed choice letter for [facility] for home oxygen. Faxed order and clinical for home oxygen to [facility] [phone]. Notified Olga Le, liaison: [phone]
[2018-09-16 12:02] VITALS: BP 125/61
[2018-09-16] MEDS ORDERED: LASIX40 MG PO (13:16)
[2018-09-16] MEDS ORDERED: K-TAB10 MEQ (13:17)
[2018-09-16] MEDS ORDERED: ELIQUIS PO (13:20)
--- NOTE | 2018-09-16 15:40 | NUR ---
CLEARED BY DR. JACKMAN TO DISCHARGE HOME. F/U IN ONE WEEK.
[2018-09-16 15:54] VITALS: BP 105/65
--- NOTE | 2018-09-16 18:35 | Discharge Summary ---
PRIMARY CARE PHYSICIAN: Elisa Robison MD SAFETY PIN ASSEMBLING MACHINE OPERATOR: Magnus Blanchard MD FINAL DIAGNOSES: 1. Acute systolic dysfunction, congestive heart failure. Echocardiogram showed ejection fraction of 30%. 2. Atrial fibrillation with rapid ventricular rate response, controlling. 3. Morbidly obese. 4. Oxygen dependent. SUMMARY: This is a 57-year-old male, obese with extensive chronic medical problems including hypertension, diabetes type 2, on insulin therapy; hypothyroidism, dyslipidemia, came into the hospital with increasing shortness of breath, it is 1st on exertion and subsequently at rest, found to have pulmonary edema with acute congestive heart failure. Echocardiogram showed ejection fraction of 30%. The patient was placed on oxygen IV furosemide. He is also on Lovenox. The patient had atrial fibrillation. His heart rate under control. The patient is stable. He is placed on Lovenox and now convert to Eliquis twice a day. He is also on IV Lasix, convert to 40 mg twice a day orally. Overall, the patient is stable. He is on fluid restriction to 1500 mL per 24 hours. Arrangement has been made for the patient to have oxygen for which he qualify. The patient is stable, discharged home with oxygen. Resume home medication, Eliquis 5 mg b.i.d., Lasix 40 mg b.i.d., potassium 20 mEq daily. The patient to follow up with Dr. Arana outpatient for further cardiac arrhythmia workup and Dr. Robison, his family physician for medication reconciliation. The patient is stable discharged home today. MD DURAN Vaz/HAROON /[id number]
--- NOTE | 2018-09-16 19:14 | Progress Note ---
DATE: 09/16/2018 SUBJECTIVE: Doing well today. Shortness of breath much improved. Able to ambulate in the room. Denies chest pain, dyspnea on exertion to moderate exertion. Overall, better when compared to on admission. Edema resolved. OBJECTIVE: VITAL SIGNS: Temperature 96.9, heart rate 69, respiratory rate 18, blood pressure 105/65, and O2 saturation 97% on room air. GENERAL: In no acute distress, alert. NECK: No JVD. CHEST: Clear to auscultation. CARDIOVASCULAR: Regular rate and rhythm. Normal S1 and S2. No S3 or S4. Systolic ejection murmur 03/26. ABDOMEN: Soft. EXTREMITIES: No edema. Warm distal extremities. MEDICATIONS: Cardiovascular medications reviewed. Methadone p.r.n., metoprolol tartrate 50 mg every 12 hours, lisinopril 2.5 mg daily, aspirin 325 mg daily, furosemide 40 mg IV every 12 hours, transition to p.o. Atorvastatin 40 mg at bedtime. STUDIES: Reviewed. White blood cells 10, hemoglobin 11, platelets 259, and glucose 199. Telemetry in sinus rhythm. ASSESSMENT: A 57-year-old man presents with: 1. Paroxysmal atrial fibrillation. 2. Vxqsh-vf-gfyzbld severe systolic heart failure in the setting of rapid ventricular response on echo, ejection fraction was 20% to 25% with LV chamber dilatation and decreased RV systolic function. 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 3. Morbid obesity. 4. Diabetes mellitus type 2. 5. Hypertension. 6. Dyslipidemia. 7. Coronary artery disease with history of aortocoronary bypass in 2003, 4-vessel. 8. History of pulmonary embolism in 2011. RECOMMENDATIONS: 1. As converted to sinus rhythm, continue current medical regimen including beta-justin and EMMANUEL inhibitor for optimal medical therapy for heart failure. 2. Limited options for antiarrhythmics given methadone use (with QT prolongation concerns) as well as low normal blood pressure reads limiting up titration of rate control strategy. 3. Outpatient EP evaluations been advised. 4. Lasix 40 mg p.o. b.i.d., daily weights, and low-sodium and low-potassium diet advised on discharge. 5. Outpatient followup advised in 1 to 2 weeks and in 1 week post discharge as outpatient, can discuss further coronary risk stratification and optimization for heart failure. MD IAM Briceno/HAROON /[id number]
== END 2018-09-16 16:27 | disposition home or self-care (01) | DRG 308 ==
LOC: ER 17:20 → ERHOLD 20:30 → MED/SURG 21:47
PROVIDERS: ADMIT Internal Medicine; ATTEND Internal Medicine
DX: I48.0 Paroxysmal atrial fibrillation (principal); I50.23 Acute on chronic systolic (congestive) heart failure; Z68.41 Body mass index [BMI] 40.0-44.9, adult; I11.0 Hypertensive heart disease with heart failure; Z79.01 Long term (current) use of anticoagulants; E66.01 Morbid (severe) obesity due to excess calories; I25.10 Atherosclerotic heart disease of native coronary artery without angina pectoris; Z95.1 Presence of aortocoronary bypass graft; E03.9 Hypothyroidism, unspecified; F41.9 Anxiety disorder, unspecified; F32.9 Major depressive disorder, single episode, unspecified; E11.42 Type 2 diabetes mellitus with diabetic polyneuropathy; G30.9 Alzheimer's disease, unspecified; F02.80 Dementia in other diseases classified elsewhere, unspecified severity, without behavioral disturbance, psychotic disturbance, mood disturbance, and anxiety; Z87.891 Personal history of nicotine dependence; Z98.890 Other specified postprocedural states; Z83.3 Family history of diabetes mellitus; Z82.49 Family history of ischemic heart disease and other diseases of the circulatory system; E78.5 Hyperlipidemia, unspecified; Z86.711 Personal history of pulmonary embolism; Z79.891 Long term (current) use of opiate analgesic; G89.4 Chronic pain syndrome; Z99.81 Dependence on supplemental oxygen; Z79.4 Long term (current) use of insulin
CPT/HCPCS: 36415; 70450; 71045; 80048; 80053; 81001; 82550; 82553; 82948; 83735; 83880; 84484; 85025; 85610; 85730; 87086; 93005; 93306; 99284; J1160; J1650; J1817; J1940; J7030

== ENCOUNTER 2018-11-29 14:19 | Inpatient (IN) | payer OTHER ==
[~2018-11-29] VITALS: Ht 182.9 cm; Wt 138.3 kg
[~2018-11-29 14:19] MED LIST changes: +ASPIRIN325 MG PO; +ATORVASTATIN CA40 MG PO; +BACLOFEN10 MG PO; +BUSPIRONE HCL30 MG PO; +CYMBALTA30 MG PO; +DIVALPROEX SOD500 MG PO; +ELIQUIS PO; +GABAPENTIN600 MG PO; +GLIMEPIRIDE4 MG PO; +HYDRALAZINE HC100 MG PO; +HYDROCODON-ACE1 EAC9 PO; +HYDROXYZINE HCL25 MG PO; +K-TAB10 MEQ; +LASIX40 MG PO; +LEVOTHYROXINE75 MCG PO; +LISINOPRIL5 MG PO; +METFORMIN HCL1000 MG PO; +METHADONE HCL5 MG PO; +METOPROLOL TART50 MG PO; +NOVOLOG100 UNITS1; +OXYBUTYNIN CHLO15 MG PO; +TRESIBA SC
--- OUTSIDE RECORDS SUMMARY | 2018-11-29 14:21 | XMS REPORT | Clinical Summary ---
Author Author [facility] Organization [facility] Address Unknown Phone Unavailable Care Team Providers Care Payroll And Benefits Assistant Name Role Phone Elisa Munguia MD PCP [...] Used Former Smoker Smokeless Tobacco: Former User Drinks/Week oz/Week Comments Alcohol Use Yes Sex Assigned at Date Recorded Not [...] INFLUENZA VACCINE 10/19/2018 Results Not on fileafter 11/28/2017 Insurance Type Payer Benefit Subscriber ID Effective Phone Address Plan / Dates Group HMO [employer] xxxxxxxxx 2016-[employer] Advance Directives For more information, please contact: [phone] Patient Vp Outcomes Explanation Type Date Recorded Advance Directives, Living Will and Medical Power of Flight Manager
--- OUTSIDE RECORDS SUMMARY | 2018-11-29 14:22 | XMS REPORT | Continuity of Care Document ---
Author Author [employer] Address Unknown Phone Unavailable Care Team Providers Care Medicare Nurse Name Role Phone Medstro Information idiag Unavailable Unavailable Problems Problem Status Onset Date Classification Date Reported Comments Source NEED FOR PROPHYLACTIC VACCINATION AGAINST STREPTOCOCCUS PNEUMONIAE [PNEUMOCOCCUS] Active 08/20/2014 Condition 10/25/2014 [facility] BENIGN PROSTATIC HYPERTROPHY Active 08/20/2014 Condition 10/25/2014 [facility] ERECTILE DYSFUNCTION Active 08/20/2014 Condition 10/25/2014 [facility] BODY MASS INDEX 39.0-39.9, ADULT Active 06/17/2014 Condition 10/25/2014 [facility] PREVENTIVE HEALTH CARE Active 06/17/2014 Condition 10/25/2014 [facility] HYPERTENSION Active 06/17/2014 Condition 10/25/2014 [facility] DIABETES MELLITUS, TYPE II, WITH COMPLICATIONS Active 06/17/2014 Condition 07/04/2014 [facility] HYPERLIPIDEMIA Active 06/17/2014 Condition 10/25/2014 [facility] PERSONAL HISTORY OF TRAUMATIC BRAIN INJURY Active 06/17/2014 Condition 10/25/2014 [facility] HYPOTHYROIDISM Active 06/17/2014 Condition 10/25/2014 [facility] GAIT IMBALANCE Active 06/17/2014 Condition 10/25/2014 [facility] SCREENING FOR COLON CANCER Active 06/17/2014 Condition 10/25/2014 [facility] PROSTATE NEOPLASM SCREENING Active 06/17/2014 Condition 10/25/2014 [facility] SCREENING FOR GLAUCOMA Active 06/17/2014 Condition 10/25/2014 [facility] CAD (CORONARY ARTERY DISEASE) Active 06/17/2014 Condition 10/25/2014 [facility] DEPRESSION Active 06/17/2014 Condition 10/25/2014 [facility] CHRONIC BACK PAIN Active 06/17/2014 Condition 10/25/2014 [facility] CHRONIC PAIN SYNDROME Active 06/17/2014 Condition 10/25/2014 [facility] DIABETIC NEUROPATHY Active 06/17/2014 Condition 10/25/2014 [facility] SLEEP APNEA, OBSTRUCTIVE Active 06/17/2014 Condition 10/25/2014 [facility] HX OF SMOKER Active 06/17/2014 Condition 10/25/2014 [facility] FREQUENCY, URINARY Active 06/17/2014 Condition 10/25/2014 [facility] SCREENING EXAMINATION FOR VENEREAL DISEASE Active 06/17/2014 Condition 10/25/2014 [facility] DIABETES MELLITUS, TYPE II, UNCONTROLLED, WITH COMPLICATIONS Active 06/17/2014 Condition 10/25/2014 [facility] Congestive heart failure Active Problem 09/16/2018 [facility] Dizziness Active Problem 09/16/2018 [facility] Dyspnea Active Problem 09/16/2018 [facility] Medications Medication Details Route Status Patient Instructions Ordering Provider Order Date Source CIALIS 20 MG TABS May take half of the tablet as needed as directed Active 08/20/2014 [facility] METFORMIN HCL 850 MG TABS Take one tablet by mouth two times a day Active 07/16/2014 [facility] GLIPIZIDE 5 MG TABS Take one tablet by mouth two times a day Active 07/16/2014 [facility] ATORVASTATIN CALCIUM 40 MG TABS Take one tablet by mouth once a day Active 07/16/2014 [facility] LISINOPRIL 10 MG TABS Take one tablet by mouth two times a day Active 07/16/2014 [facility] LISINOPRIL 10 MG TABS Take one tablet by mouth two times a day Active 07/16/2014 [facility] METFORMIN HCL 850 MG TABS Take one tablet by mouth two times a day Active 07/16/2014 [facility] GLIPIZIDE 5 MG TABS Take one tablet by mouth two times a day Active 07/16/2014 [facility] LISINOPRIL 10 MG TABS Take one tablet by mouth two times a day Active 07/16/2014 [facility] ATORVASTATIN CALCIUM 40 MG TABS Take one tablet by mouth once a day Active 07/16/2014 [facility] HYDROCODONE-ACETAMINOPHEN 10-325 MG TABS take one to two tablets by mouth every 6 hours as needed for pain Active 06/17/2014 [facility] CITALOPRAM HYDROBROMIDE 20 MG TABS take one tablet by mouth daily Active 06/17/2014 [facility] LEVOTHYROXINE SODIUM 25 MCG TABS take one tablet by mouth daily Active 06/17/2014 [facility] METOPROLOL TARTRATE 50 MG TABS take one tablet by mouth twice a day Active 06/17/2014 [facility] GABAPENTIN 800 MG TABS take one tablet by mouth three times a day Active 06/17/2014 [facility] ASPIRIN EC LO-DOSE 81 MG TBEC take one tablet by mouth daily Active 06/17/2014 [facility] EQ NICOTINE 4 MG LOZG take one tablet by mouth five times a day Active 06/17/2014 [facility] HYDROCODONE-ACETAMINOPHEN 10-325 MG TABS take one to two tablets by mouth every 6 hours as needed for pain Active 06/17/2014 [facility] METOPROLOL TARTRATE 50 MG TABS take one tablet by mouth twice a day Active 06/17/2014 [facility] GABAPENTIN 800 MG TABS take one tablet by mouth three times a day Active 06/17/2014 [facility] Aspirin 325 Mg Tablet Daily Active [facility] Atorvastatin Calcium 40 Mg Tablet Bedtime Active [facility] Baclofen 10 Mg Tablet Three Times A Day as needed for Muscle Spasms Active [facility] Buspirone Hcl 30 Mg Tablet Every 12 Hours Active [facility] Divalproex Sodium 500 Mg Tablet. Every 12 Hours Active [facility] Duloxetine Hcl (Cymbalta) 30 Mg Capsule. Three Times A Day Active [facility] Eliquis Twice A Day Active [facility] Furosemide (Lasix) 40 Mg Tablet Twice A Day Active [facility] Gabapentin 600 Mg Tablet Three Times A Day Active [facility] Glimepiride 4 Mg Tablet Twice A Day Active [facility] Hydralazine Hcl 100 Mg Tablet Three Times A Day Active [facility] Hydrocodone Bit/Acetaminophen (Hydrocodon-Acetaminophn 10-325) 1 Each Tablet Every 12 Hours as needed for Moderate Pain (4-6) Active [facility] Hydroxyzine Hcl 25 Mg Tablet Bedtime as needed for Dizziness Active [facility] Insulin Aspart (Novolog) 100 Units/1 Ml Inj Active 15-20 UNITS PRN TID [facility] Levothyroxine Sodium 75 Mcg Tablet Daily@0600 Active [facility] Lisinopril 5 Mg Tablet Daily Active [facility] Metformin Hcl 1,000 Mg Tablet Twice A Day Active [facility] Methadone Hcl 5 Mg Tablet Every 8 Hours as needed for Severe Pain (7-10) Active [facility] Metoprolol Tartrate 50 Mg Tablet Every 12 Hours Active [facility] Oxybutynin Chloride (Oxybutynin Chloride Er) 15 Mg Tab.er.24 Daily Active [facility] Potassium Chloride (K-Tab) 10 Meq Tablet.er Daily Active [facility] Tresiba Every 12 Hours Active [facility] Allergies, Adverse Reactions, Alerts No Known Medication Allergies Immunizations No Data Provided for This Section Results Order Name Results Value Reference Range Date Interpretation Comments Source Capillary blood glucose measurement by glucometer (mass/volume) 199 70 - 120 09/16/2018 [facility] Blood leukocytes automated count (number/volume) 10.08 4.8 - 10.8 09/14/2018 [facility] Blood erythrocytes automated count (number/volume) 3.82 4.3 - 5.7 09/14/2018 [facility] Blood hemoglobin measurement (moles/volume) 11.0 14.0 - 18.0 09/14/2018 [facility] Automated blood hematocrit (volume fraction) 35.0 38.2 - 49.6 09/14/2018 [facility] Automated erythrocyte mean corpuscular volume 91.6 81 - 99 09/14/2018 [facility] Automated erythrocyte mean corpuscular hemoglobin (mass per erythrocyte) 28.8 28 - 32 09/14/2018 [facility] Automated erythrocyte mean corpuscular hemoglobin concentration measurement (mass/volume) 31.4 31 - 35 09/14/2018 [facility] RDW BldCo-Rto 13.9 11.7 - 14.4 09/14/2018 [facility] Automated blood platelet count (count/volume) 259 140 - 360 09/14/2018 [facility] Automated blood segmented neutrophil count as percentage of total leukocytes 57.9 38.7 - 80.0 09/14/2018 [facility] Automated blood lymphocyte count as percentage ot total leukocytes 28.5 18.0 - 39.1 09/14/2018 [facility] Automated blood monocyte count as percentage of total leukocytes 8.4 4.4 - 11.3 09/14/2018 [facility] Automated blood eosinophil count as percentage of total leukocytes 4.4 0.0 - 6.0 09/14/2018 [facility] Automated blood basophil count as percentage of total leukocytes 0.4 0.0 - 1.0 09/14/2018 [facility] IM GRANULOCYTES % 0.4 0.0 - 1.0 09/14/2018 [facility] Automated blood neutrophil count 5.8 2.1 - 6.9 09/14/2018 [facility] Blood lymphocytes count (number/volume) 2.9 1.0 - 3.2 09/14/2018 [facility] Blood monocytes automated count (number/volume) 0.9 0.2 - 0.8 09/14/2018 [facility] Automated blood eosinophil count 0.4 0.0 - 0.4 09/14/2018 [facility] Automated blood basophil count (count/volume) 0.0 0.0 - 0.1 09/14/2018 [facility] Absolute Immature Granulocyte (auto 0.04 0 - 0.1 09/14/2018 [facility] Serum or plasma sodium measurement (moles/volume) 137 136 - 145 09/14/2018 [facility] Serum or plasma potassium measurement (moles/volume) 5.1 3.5 - 5.1 09/14/2018 [facility] Serum or plasma chloride measurement (moles/volume) 95 98 - 107 09/14/2018 [facility] Serum or plasma carbon dioxide, total measurement (moles/volume) 34 22 - 29 09/14/2018 [facility] Serum or plasma anion gap 13.1 8 - 16 09/14/2018 [facility] Serum or plasma urea nitrogen measurement (mass/volume) 18 7 - 26 09/14/2018 [facility] Serum or plasma creatinine measurement (mass/volume) 0.98 0.72 - 1.25 09/14/2018 [facility] Serum or plasma urea nitrogen/creatinine mass ratio 18 6 - 25 09/14/2018 [facility] Estimated glomerular filtration rate (GFR) determination > 60 60 09/14/2018 [facility] Glucose measurement 133 74 - 118 09/14/2018 [facility] Serum or plasma calcium measurement (mass/volume) 9.1 8.4 - 10.2 09/14/2018 [facility] Serum or plasma creatine kinase measurement (enzymatic activity/volume) 56 30 - 200 09/13/2018 [facility] Serum or plasma creatine kinase MB measurement (mass/volume) 2.30 0 - 5.0 09/13/2018 [facility] Troponin I measurement by highly sensitive enzyme immunoassay 0.012 0 - 0.300 09/13/2018 [facility] Serum or plasma total bilirubin measurement (mass/volume) 0.6 0.2 - 1.2 09/13/2018 [facility] Aspartate Amino Transf (AST/SGOT) 27 5 - 34 09/13/2018 [facility] Serum or plasma alanine aminotransferase measurement (enzymatic activity/volume) 69 0 - 55 09/13/2018 [facility] Serum or plasma protein measurement (mass/volume) 6.6 6.5 - 8.1 09/13/2018 [facility] Serum or plasma albumin measurement (mass/volume) 3.0 3.5 - 5.0 09/13/2018 [facility] Plasma globulin measurement (mass/volume) 3.6 2.3 - 3.5 09/13/2018 [facility] Serum or plasma albumin/globulin mass ratio 0.8 0.8 - 2.0 09/13/2018 [facility] Serum or plasma alkaline phosphatase measurement (enzymatic activity/volume) 60 40 - 150 09/13/2018 [facility] Urine color determination YELLOW YELLOW 09/12/2018 [facility] Urine clarity SL CLOUDY CLEAR 09/12/2018 [facility] Specific gravity of Urine by Test strip 1.025 1.010 - 1.025 09/12/2018 [facility] Urine pH measurement by automated test strip 5.5 5 - 7 09/12/2018 [facility] Urine leukocyte esterase detection by automated test strip SMALL NEGATIVE 09/12/2018 [facility] Urine nitrite detection by automated test strip NEGATIVE NEGATIVE 09/12/2018 [facility] Urine protein detection by automated test strip NEGATIVE NEGATIVE 09/12/2018 [facility] Urine glucose detection by automated test strip 2+ NEGATIVE 09/12/2018 [facility] Urine ketones detection by automated test strip NEGATIVE NEGATIVE 09/12/2018 [facility] Urine urobilinogen measurement by test strip (mass/volume) 0.2 0.2 - 1 09/12/2018 [facility] Urine total bilirubin detection NEGATIVE NEGATIVE 09/12/2018 [facility] Urine erythrocytes detection NEGATIVE NEGATIVE 09/12/2018 [facility] Automated urine sediment leukocyte count by microscopy (number/high power field) >50 0 - 5 09/12/2018 [facility] Erythrocytes detection in urine sediment by light microscopy NONE 0 - 5 09/12/2018 [facility] Bacteria detection in urine sediment by light microscopy MODERATE NONE 09/12/2018 [facility] Epithelial cells detection in urine sediment by light microscopy MODERATE NONE 09/12/2018 [facility] Prothrombin time (PT) in platelet poor plasma by coagulation assay 13.0 11.9 - 14.5 09/12/2018 [facility] INR in Platelet poor plasma by Coagulation assay 0.93 09/12/2018 [facility] Activated partial thromboplastin time (aPTT) in platelet poor plasma bycoagulation assay 32.0 23.8 - 35.5 09/12/2018 [facility] Serum or plasma magnesium measurement (mass/volume) 2.1 1.3 - 2.1 09/12/2018 [facility] BNP Bld-mCnc 185.2 0 - 100 09/12/2018 [facility] Chemistry HGBA1C 7.7 - 5.6 10/18/2014 [facility] CHOLESTEROL 98 - 199 10/18/2014 [facility] Chemistry TRIGLYCERIDE 120 - 149 10/18/2014 [facility] Chemistry HDL 31 >=61 10/18/2014 [facility] Chemistry LDL 43 - 99 10/18/2014 [facility] Chemistry SODIUM 141 MEQ/L 135 - 145 10/18/2014 [facility] Chemistry POTASSIUM 4.8 MEQ/L 3.5 - 5.1 10/18/2014 [facility] CREATININE 1.0 0.5 - 1.4 10/18/2014 [facility] BUN 13 7 - 22 10/18/2014 [facility] BUN/CREAT 13 6 - 25 10/18/2014 [facility] ALBUMIN 3.3 3.5 - 5.0 10/18/2014 [facility] CALCIUM 8.4 8.5 - 10.5 10/18/2014 [facility] SGPT (ALT) 29 0 - 65 10/18/2014 [facility] SGOT (AST) 14 0 - 37 10/18/2014 [facility] ALK PHOS 61 39 - 136 10/18/2014 [facility] HEMOCCULT Negative 07/04/2014 [facility] HEMOCCULT Negative 07/03/2014 [facility] HEMOCCULT Negative 07/02/2014 [facility] HGBA1C 10.6 - 5.6 06/28/2014 [facility] TSH 1.310 0.360 - 3.740 06/28/2014 [facility] CHOLESTEROL 204 - 199 06/28/2014 [facility] TRIGLYCERIDE 321 - 149 06/28/2014 [facility] Chemistry HDL 38 >=61 06/28/2014 [facility] Chemistry LDL 102 - 99 06/28/2014 [facility] SODIUM 135 MEQ/L 135 - 145 06/28/2014 [facility] POTASSIUM 4.1 MEQ/L 3.5 - 5.1 06/28/2014 [facility] CREATININE 1.0 0.5 - 1.4 06/28/2014 [facility] BUN 15 7 - 22 06/28/2014 [facility] BUN/CREAT 15 6 - 25 06/28/2014 [facility] ALBUMIN 3.8 3.5 - 5.0 06/28/2014 [facility] Chemistry CALCIUM 9.8 8.5 - 10.5 06/28/2014 [facility] Chemistry SGPT (ALT) 46 0 - 65 06/28/2014 [facility] Chemistry SGOT (AST) 21 0 - 37 06/28/2014 [facility] Chemistry ALK PHOS 78 39 - 136 06/28/2014 [facility] Chemistry PSA 0.56 0.00 - 4.00 06/28/2014 [facility] Hematology HGB 16.6 14.0 - 18.0 06/28/2014 [facility] Hematology HCT 49.9 42.0 - 54.0 06/28/2014 [facility] Hematology PLATELETS 246 K/CMM 133 - 450 06/28/2014 [facility] Serology RPR Non Reactive 06/28/2014 [facility] Serology RPR Non Reactive 06/28/2014 [facility] Serology RPR Non Reactive 06/28/2014 [facility] Urinalysis UA COLOR Yellow 06/28/2014 [facility] Pathology Reports No Data Provided for This Section Diagnostic Reports No Data Provided for This Section Consultation Notes No Data Provided for This Section Discharge Summaries No Data Provided for This Section History and Physicals No Data Provided for This Section Vital Signs Vital Sign Value Date Comments Source Height 72 08/20/2014 [facility] Weight 289.50 08/20/2014 [facility] Respitory Rate 16 08/20/2014 [facility] Systolic (mm Hg) 123 08/20/2014 [facility] Diastolic (mm Hg) 87 08/20/2014 [facility] Heart Rate 81 08/20/2014 [facility] Temperature Oral (F) 97.1 F 08/20/2014 [facility] Temperature Oral (F) 96.9 F 07/16/2014 Medical [...] Provider ADM Date DC Date Status Source [facility] Office Visit [id number] Elisa Langley MD 06/17/2014 06/17/2014 [facility] Lab Report [id number] Elisa Langley MD 06/28/2014 06/28/2014 [facility] Lab Report [id number] Elisa Langley MD 07/04/2014 07/04/2014 [facility] Office Visit [id number] Elisa Langley MD 07/16/2014 07/16/2014 [facility] Office Visit [id number] Elisa Langley MD 08/20/2014 08/20/2014 [facility] Lab Report [id number] Elisa Langley MD 10/18/2014 10/18/2014 [facility] Office Visit [id number] Elisa Langley MD 10/25/2014 10/25/2014 [facility] Outpatient [id number] ELISA LANGLEY 10/25/2014 Active [facility] [id number] SAULO PERRY 02/24/2015 Active [facility] [id number] ELISA LANGLEY 05/26/2015 Active [facility] [id number] ELISA LANGLEY 07/01/2015 Active [facility] [id number] ELISA LANGLEY 10/17/2015 Active [facility] [id number] ELISA KORIN 01/19/2016 Active [facility] [id number] ELISA KORIN 04/20/2016 Active [facility] [id number] ELISA KORIN 07/15/2016 Active [facility] [id number] ELISA KORIN 09/14/2016 Active [facility] [id number] ELISA KORIN 10/13/2016 Active [facility] [id number] ELISA LANGLEY 12/22/2016 Active [facility] [id number] ELISA LANGLEY 03/24/2017 Active [facility] [id number] ELISA KORIN 06/24/2017 Active [facility] [id number] ELISA LANGLEY 07/22/2017 Active [facility] [id number] ELISA KORIN 10/21/2017 Active [facility] [id number] ELISA KORIN 01/20/2018 Active [facility] [id number] ELISA KORIN 04/21/2018 Active [facility] [id number] Elisa Korin 06/26/2018 Active [facility] [id number] Elisa Korin 07/24/2018 Active [facility] [id number] WILLIAN ALCALA MD 09/12/2018 09/16/2018 [facility] Outpatient [id number] Elisa Flanneryero 09/25/2018 Active [facility] [id number] Elisa Langley 10/23/2018 [facility] Procedure Code Date Perfomer Comments Source Computed tomography of brain without radiopaque contrast [id number] 09/12/2018 [facility] diabetic foot check [id number] 06/17/2014 yes [facility] Assessment and Plan No Data Provided for This Section Plan of Care Plan of Care Date Source Discharge Date 09/16/18 4:27pm Disposition HOME, SELF-CARE Instructions/Education Provided Aspiration Dyspnea Using Oxygen at Home Prescriptions See Medication Section Additional Instructions/Education CONTINUE ADA DIET. RESTRICT FLUIDS TO 1500 CC IN A 24 HR. PERIOD. FOLLOW UP WITH DR. JACKMAN IN ONE WEEK. CALL [phone] TO MAKE AN APPOINTMENT. FOLLOW UP WITH YOUR PRIMARY CARE PROVIDER DR. LANGLEY IN ONE WEEK. 09/16/2018 [facility] Social History Social History Date Source Smoking Status Start Date Stop Date Former smoker 09/16/2018 [facility] Family History No Data Provided for This Section Advance Directives Order Name Results Value Date Source Advance Directives Advance Directives Directive Response Recorded Date/Time Does the patient have an advance directive? No 09/12/18 10:38pm If yes, is advance directive on file with [facility]? No 09/12/18 10:38pm If not on file with [facility] will patient provide a copy? No 09/12/18 10:38pm Do you have a Directive to Physician? No 09/12/18 5:47pm Do you have a Medical Power of Check Viewer? No 09/12/18 5:47pm Do you have an out of hospital Do Not Resuscitate Order? No 09/12/18 5:47pm Do you have any special needs we should be aware of? No 09/12/18 5:47pm Do you have a support person here with you today? Yes 09/12/18 5:47pm Did patient receive Notice of Privacy Practices? Yes 09/12/18 5:47pm Did patient receive patient rights and responsibilities? Yes 09/12/18 5:47pm 09/16/2018 [facility] Functional Status No Data Provided for This Section
--- NOTE | 2018-11-29 14:25 | NUR ---
DR. SEQUEIRA AT BEDSIDE REQUESTING BIPAP ABG FOR PT, NOTIFIED TECHNICAL TRANSLATOR.
[2018-11-29] MEDS ORDERED: SODIUM CHLORIDE 0.9% 1000ML 1,000 ML IV STA (14:27)
--- NOTE | 2018-11-29 14:32 | NUR ---
RT AT BEDSIDE PLACING PT ON BIPAP AND COLLECTING ABG SPECIMEN
[2018-11-29] MEDS ORDERED: SODIUM CHLORIDE 0.9% 1000ML 1,000 ML ONE (14:47)
[2018-11-29 14:56] LABS: ABG HCO3 34 mmol/L (23-28); ABG PCO2 59 mmHg (41-51); ABG PH 7.37 (7.31-7.41); ABG PO2 74 mmHg (80-105)
[2018-11-29 15:08] LABS: BASOPHILS # (AUTO) 0.1 (0.0-0.1); BASOPHILS % 0.5 % (0.0-1.0); EOSINOPHILS # (AUTO) 0.5 (0.0-0.4); EOSINOPHILS % 4.1 % (0.0-6.0); HEMATOCRIT 39.8 % (38.2-49.6); LYMPHOCYTES # (AUTO) 2.2 (1.0-3.2); LYMPHOCYTES % 16.7 % (18.0-39.1); MEAN CORPUSCULAR HEMOGLOBIN 30.1 pg (28-32); MEAN CORPUSCULAR HGB CONC 32.7 g/dL (31-35); MEAN CORPUSCULAR VOLUME 92.1 fL (81-99); MONOCYTES # (AUTO) 1.2 (0.2-0.8); MONOCYTES % 8.9 % (4.4-11.3); NEUTROPHILS # (AUTO) 9.2 (2.1-6.9); NEUTROPHILS % 69.1 % (38.7-80.0); PLATELET COUNT 446 x10e3/uL (140-360); RED BLOOD COUNT 4.32 x10e6/uL (4.3-5.7); RED CELL DISTRIBUTION WIDTH 14.7 % (11.7-14.4)
[2018-11-29 15:18] LABS: INR 0.96; PROTHROMBIN TIME 13.3 seconds (11.9-14.5)
[2018-11-29 15:19] LABS: PARTIAL THROMBOPLASTIN TIME 30.1 seconds (23.8-35.5)
--- NOTE | 2018-11-29 15:23 | Diagnostic Imaging Report ---
EXAMINATION: CHEST SINGLE (PORTABLE) INDICATION: Altered mental status COMPARISON: None FINDINGS: LINES/TUBES:EKG leads overlie the chest. LUNGS:The lungs are moderately inflated. There is perihilar fullness and indistinctness of the pulmonary vasculature. PLEURA:No pleural effusion or pneumothorax. MEDIASTINUM:Cardiomediastinal silhouette is stably enlarged. BONES/SOFT TISSUES:No acute osseous injury. Unchanged sternotomy wires. ABDOMEN:No free air under the diaphragm. IMPRESSION: Cardiomegaly and mild pulmonary edema. Signed by: Mignon Overton MD on 11/29/2018 3:20 PM
[2018-11-29 15:30] LABS: ALBUMIN 3.7 g/dL (3.5-5.0); ALBUMIN/GLOBULIN RATIO 0.8 (0.8-2.0); ANION GAP 19.5 mmol/L (8-16); CALCIUM 9.9 mg/dL (8.4-10.2); CREATININE, SERUM 1.5 mg/dL (0.72-1.25); POTASSIUM 4.5 mmol/L (3.5-5.1)
[2018-11-29] MEDS ORDERED: VANCOMYCIN 1GM/NS 250 ML 250 ML IV ONE (15:30)
[2018-11-29] MEDS ORDERED: FUROSEMIDE INJ 10 MG/ML 4 ML VIAL IV ONE (15:30)
[2018-11-29] MEDS ORDERED: CEFTRIAXONE SOD 1 GM VIAL IV ONE (15:30)
[2018-11-29 15:33] LABS: B-TYPE NATRIURETIC PEPTIDE2 90.6 pg/mL (0-100)
[2018-11-29 15:36] LABS: CREATINE KINASE MB 3.4 ng/mL (0-5.0)
[2018-11-29] MEDS ORDERED: CEFTRIAXONE SOD 1 GM/NS 50 ML 50 ML IV ONE (15:45)
--- NOTE | 2018-11-29 16:06 | Diagnostic Imaging Report ---
EXAMINATION: Head CT HISTORY: Altered mental status, unresponsive after spine procedure. On the same day COMPARISON: Head CT 09/12/2018 TECHNIQUE: Multidetector axial images were obtained without contrast from the foramen magnum to the vertex . The images were reconstructed using brain and bone algorithms. Thin section brain images were reformatted into coronal and sagittal planes. Image quality: Motion/streaking artifact limits the evaluation of the skull base and posterior cranial fossa. Dose modulation, iterative reconstruction, and/or weight based adjustment of the mA/kV was utilized to reduce the radiation dose to as low as reasonably achievable. FINDINGS: Parenchyma: 1. No abnormal densities. 2. No mass or hemorrhage. No CT evidence of acute territorial vascular insult. Extra-axial spaces:No abnormal density. No extra-axial fluid collections Brain volume: Normal for age. Ventricles: No hydrocephalus or displacement. Arteries: No density suggestive of thrombus. Dural sinuses: No abnormal density. Extra-axial spaces: No abnormal density. Foramen magnum: No mass, Chiari malformation, or basilar invagination. Sella: No obvious mass. Paranasal/mastoid sinuses: Imaged portions unremarkable. Skull/Scalp: No lytic or blastic lesions. No fractures. IMPRESSION: No acute intracranial abnormalities, unchanged compared to head CT of 09/12/2018. Signed by: Dr. Gita Markham M.D. on 11/29/2018 4:03 PM
[2018-11-29 16:19] LABS: BILIRUBIN,URINE NEGATIVE (NEGATIVE); CLARITY,URINE CLEAR (CLEAR); COLOR,URINE YELLOW (YELLOW); KETONES,URINE NEGATIVE (NEGATIVE); LEUKOCYTE ESTERASE ,URINE SMALL (NEGATIVE); NITRITE,URINE NEGATIVE (NEGATIVE); PROTEIN,URINE DIPSTICK NEGATIVE (NEGATIVE); URINE UROBILINOGEN 0.2 mg/dL (0.2 - 1)
[2018-11-29] MEDS ORDERED: NALOXONE HCL 2MG/2 ML SYRINGE IV ONE (16:30)
--- NOTE | 2018-11-29 16:30 | Diagnostic Imaging Report ---
History: Back pain status post back injection Comparison studies: None Technique: Axial images were obtained through the lumbar spine. Coronal and sagittal images reconstructed from the axial data. Dose modulation, iterative reconstruction, and/or weight based adjustment of the mA/kV was utilized to reduce the radiation dose to as low as reasonably achievable. Intravenous contrast: None Findings: Number of non-rib bearing vertebral bodies: 5 Alignment: Normal lordosis. No scoliosis. Dorsal paraspinal soft tissues and paraspinal muscles: Small foci of gas in the left dorsal paraspinal musculature and soft tissues at S1 related to recent spinal injection. Fat within the dorsal epidural space within the lumbar canal and fat within the sacral canal are maintained without evidence of gross epidural fluid collection or hematoma. Sacroiliac joints: Degenerative changes bilaterally with periarticular sclerosis and anterior bridging osteophytes with partial joint ankylosis. Vertebrae: No fractures, infection or neoplasm. Degenerative changes: L1-L2: Mildly thickened and partially calcified ligament and flavum on the left with mild right facet arthrosis. Patent canal and foramina. L2-L3: Mild facet arthrosis. Patent canal and foramina. L3-L4: Mildly degenerated disc with vacuum phenomenon. Symmetric disc bulge does not result in significant canal or foraminal stenosis. L4-L5: Disc bulge and moderate bilateral facet arthrosis with mild right and moderate left foraminal stenosis. Bilateral foraminal stenosis and mild canal stenosis accentuated by prominent epidural fat. Changes of prior right laminotomy. L5-S1: Mildly degenerated disc with vacuum phenomenon. Disc bulge with left foraminal disc osteophyte complex and mild facet arthrosis without significant canal or foraminal stenosis. Incidental findings: Scattered calcified atherosclerosis in the abdominal aorta and iliac vessels. No abdominal aortic aneurysm. Common iliac vessels are ectatic bilaterally. Exophytic 3.2 cm right inferior pole renal lesion, possibly cyst though cannot further adequate evaluate due to artifacts. IMPRESSION: 1. Focal gas in the left dorsal sacral soft tissues related to recent spinal injection. 2. No gross epidural fluid collection/hematoma. 3. Degenerative changes, greatest at L4-L5 where there is moderate left and mild right foraminal stenosis, moderate bilateral facet arthrosis and probable prior laminotomy which can be correlated with surgical changes. 4. Incidental right inferior pole renal lesion, possibly cyst. Recommend nonemergent renal ultrasound to further evaluate. If symptoms persist, consider lumbar spine MRI to further evaluate as clinical warranted. Signed by: Dr. Walter Rivera M.D. on 11/29/2018 4:27 PM
[2018-11-29 16:34] LABS: AMORPHOUS SEDIMENT,URINE MODERATE (FEW); BACTERIA,URINE FEW /HPF; EPITHELIAL CELLS,URINE FEW /LPF
[2018-11-29] MEDS ORDERED: ASPIRIN 81 MG CHEW TAB PO ONE (17:00)
[2018-11-29] MEDS ORDERED: PANTOPRAZOLE 40 MG 10ML VIAL IV STA (17:38)
[2018-11-29] MEDS ORDERED: HYDRALAZINE HCL 20 MG/ML VIAL IV PRN (17:45)
[2018-11-29] MEDS: ENOXAPARIN INJ 80 MG/0.8 ML SYR SC SCH (17:59)
[2018-11-29] MEDS ORDERED: PIPER-TAZ 3.375 GM 50 ML IV SCH (18:00)
[2018-11-29 19:00] VITALS: BP 111/67
--- OUTSIDE RECORDS SUMMARY | 2018-11-29 19:10 | XMS REPORT | Continuity of Care Document ---
Author Author [employer] Address Unknown Phone Unavailable Care Team Providers Care Coal Inspector Name Role Phone uberall Information [employer] Unavailable Unavailable Problems Problem Status Onset Date Classification Date Reported Comments Source NEED FOR PROPHYLACTIC VACCINATION AGAINST STREPTOCOCCUS PNEUMONIAE [PNEUMOCOCCUS] Active 08/20/2014 Condition 10/25/2014 [facility] BENIGN PROSTATIC HYPERTROPHY Active 08/20/2014 Condition 10/25/2014 [facility] ERECTILE DYSFUNCTION Active 08/20/2014 Condition 10/25/2014 [facility] BODY MASS INDEX 39.0-39.9, ADULT Active 06/17/2014 Condition 10/25/2014 [facility] PREVENTIVE HEALTH CARE Active 06/17/2014 Condition 10/25/2014 [facility] HYPERTENSION Active 06/17/2014 Condition 10/25/2014 [facility] DIABETES MELLITUS, TYPE II, WITH COMPLICATIONS Active 06/17/2014 Condition 07/04/2014 [facility] HYPERLIPIDEMIA Active 06/17/2014 Condition 10/25/2014 [facility] PERSONAL HISTORY OF TRAUMATIC BRAIN INJURY Active 06/17/2014 Condition 10/25/2014 [facility] HYPOTHYROIDISM Active 06/17/2014 Condition 10/25/2014 [facility] GAIT IMBALANCE Active 06/17/2014 Condition 10/25/2014 [facility] SCREENING FOR COLON CANCER Active 06/17/2014 Condition 10/25/2014 [facility] PROSTATE NEOPLASM SCREENING Active 06/17/2014 Condition 10/25/2014 [facility] SCREENING FOR GLAUCOMA Active 06/17/2014 Condition 10/25/2014 [facility] CAD (CORONARY ARTERY DISEASE) Active 06/17/2014 Condition 10/25/2014 [facility] DEPRESSION Active 06/17/2014 Condition 10/25/2014 [facility] CHRONIC BACK PAIN Active 06/17/2014 Condition 10/25/2014 [facility] CHRONIC PAIN SYNDROME Active 06/17/2014 Condition 10/25/2014 [facility] DIABETIC NEUROPATHY Active 06/17/2014 Condition 10/25/2014 [facility] SLEEP APNEA, OBSTRUCTIVE Active 06/17/2014 Condition 10/25/2014 [facility] HX OF SMOKER Active 06/17/2014 Condition 10/25/2014 [facility] FREQUENCY, URINARY Active 06/17/2014 Condition 10/25/2014 [facility] Group SCREENING EXAMINATION FOR VENEREAL DISEASE Active 06/17/2014 Condition 10/25/2014 [facility] Group DIABETES MELLITUS, TYPE II, UNCONTROLLED, WITH COMPLICATIONS Active 06/17/2014 Condition 10/25/2014 [facility] Congestive heart failure Active Problem 09/16/2018 [facility] Dizziness Active Problem 09/16/2018 [facility] Dyspnea Active Problem 09/16/2018 [facility] Medications Medication Details Route Status Patient Instructions Ordering Provider Order Date Source CIALIS 20 MG TABS May take half of the tablet as needed as directed Active 08/20/2014 [facility] METFORMIN HCL 850 MG TABS Take one tablet by mouth two times a day Active 07/16/2014 [facility] GLIPIZIDE 5 MG TABS Take one tablet by mouth two times a day Active 07/16/2014 [facility] ATORVASTATIN CALCIUM 40 MG TABS Take one tablet by mouth once a day Active 07/16/2014 [facility] LISINOPRIL 10 MG TABS Take one tablet by mouth two times a day Active 07/16/2014 [facility] LISINOPRIL 10 MG TABS Take one tablet by mouth two times a day Active 07/16/2014 [facility] METFORMIN HCL 850 MG TABS Take one tablet by mouth two times a day Active 07/16/2014 [facility] GLIPIZIDE 5 MG TABS Take one tablet by mouth two times a day Active 07/16/2014 [facility] LISINOPRIL 10 MG TABS Take one tablet by mouth two times a day Active 07/16/2014 [facility] ATORVASTATIN CALCIUM 40 MG TABS Take one tablet by mouth once a day Active 07/16/2014 [facility] HYDROCODONE-ACETAMINOPHEN 10-325 MG TABS take one to two tablets by mouth every 6 hours as needed for pain Active 06/17/2014 [facility] CITALOPRAM HYDROBROMIDE 20 MG TABS take one tablet by mouth daily Active 06/17/2014 [facility] LEVOTHYROXINE SODIUM 25 MCG TABS take one tablet by mouth daily Active 06/17/2014 [facility] METOPROLOL TARTRATE 50 MG TABS take one tablet by mouth twice a day Active 06/17/2014 [facility] GABAPENTIN 800 MG TABS take one tablet by mouth three times a day Active 06/17/2014 [facility] ASPIRIN EC LO-DOSE 81 MG TBEC take one tablet by mouth daily Active 06/17/2014 [facility] EQ NICOTINE 4 MG LOZG take one tablet by mouth five times a day Active 06/17/2014 [facility] HYDROCODONE-ACETAMINOPHEN 10-325 MG TABS take one to two tablets by mouth every 6 hours as needed for pain Active 06/17/2014 [facility] METOPROLOL TARTRATE 50 MG TABS take one tablet by mouth twice a day Active 06/17/2014 [facility] GABAPENTIN 800 MG TABS take one tablet by mouth three times a day Active 06/17/2014 [facility] Aspirin 325 Mg Tablet Daily Active [facility] Atorvastatin Calcium 40 Mg Tablet Bedtime Active [facility] Baclofen 10 Mg Tablet Three Times A Day as needed for Muscle Spasms Active [facility] Buspirone Hcl 30 Mg Tablet Every 12 Hours Active [facility] Divalproex Sodium 500 Mg Tablet. Every 12 Hours Active [facility] Duloxetine Hcl (Cymbalta) 30 Mg Capsule. Three Times A Day Active [facility] Eliquis Twice A Day Active [facility] Furosemide (Lasix) 40 Mg Tablet Twice A Day Active [facility] Gabapentin 600 Mg Tablet Three Times A Day Active [facility] Glimepiride 4 Mg Tablet Twice A Day Active [facility] Hydralazine Hcl 100 Mg Tablet Three Times A Day Active [facility] Hydrocodone Bit/Acetaminophen (Hydrocodon-Acetaminophn 10-325) 1 Each Tablet Every 12 Hours as needed for Moderate Pain (4-6) Active [facility] Hydroxyzine Hcl 25 Mg Tablet Bedtime as needed for Dizziness Active [facility] Insulin Aspart (Novolog) 100 Units/1 Ml Inj Active 15-20 UNITS PRN TID [facility] Levothyroxine Sodium 75 Mcg Tablet Daily@0600 Active [facility] Lisinopril 5 Mg Tablet Daily Active [facility] Metformin Hcl 1,000 Mg Tablet Twice A Day Active [facility] Methadone Hcl 5 Mg Tablet Every 8 Hours as needed for Severe Pain (7-10) Active [facility] Metoprolol Tartrate 50 Mg Tablet Every 12 Hours Active [facility] Oxybutynin Chloride (Oxybutynin Chloride Er) 15 Mg Tab.er.24 Daily Active [facility] Potassium Chloride (K-Tab) 10 Meq Tablet.er Daily Active [facility] Tresiba Every 12 Hours Active [facility] Allergies, Adverse Reactions, Alerts No Known Medication Allergies Immunizations No Data Provided for This Section Results Order Name Results Value Reference Range Date Interpretation Comments Source Capillary blood glucose measurement by glucometer (mass/volume) 199 70 - 120 09/16/2018 [facility] Blood leukocytes automated count (number/volume) 10.08 4.8 - 10.8 09/14/2018 [facility] Blood erythrocytes automated count (number/volume) 3.82 4.3 - 5.7 09/14/2018 [facility] Blood hemoglobin measurement (moles/volume) 11.0 14.0 - 18.0 09/14/2018 [facility] Automated blood hematocrit (volume fraction) 35.0 38.2 - 49.6 09/14/2018 [facility] Automated erythrocyte mean corpuscular volume 91.6 81 - 99 09/14/2018 [facility] Automated erythrocyte mean corpuscular hemoglobin (mass per erythrocyte) 28.8 28 - 32 09/14/2018 [facility] Automated erythrocyte mean corpuscular hemoglobin concentration measurement (mass/volume) 31.4 31 - 35 09/14/2018 [facility] RDW BldCo-Rto 13.9 11.7 - 14.4 09/14/2018 [facility] Automated blood platelet count (count/volume) 259 140 - 360 09/14/2018 [facility] Automated blood segmented neutrophil count as percentage of total leukocytes 57.9 38.7 - 80.0 09/14/2018 [facility] Automated blood lymphocyte count as percentage ot total leukocytes 28.5 18.0 - 39.1 09/14/2018 [facility] Automated blood monocyte count as percentage of total leukocytes 8.4 4.4 - 11.3 09/14/2018 [facility] Automated blood eosinophil count as percentage of total leukocytes 4.4 0.0 - 6.0 09/14/2018 [facility] Automated blood basophil count as percentage of total leukocytes 0.4 0.0 - 1.0 09/14/2018 [facility] IM GRANULOCYTES % 0.4 0.0 - 1.0 09/14/2018 [facility] Automated blood neutrophil count 5.8 2.1 - 6.9 09/14/2018 [facility] Blood lymphocytes count (number/volume) 2.9 1.0 - 3.2 09/14/2018 [facility] Blood monocytes automated count (number/volume) 0.9 0.2 - 0.8 09/14/2018 [facility] Automated blood eosinophil count 0.4 0.0 - 0.4 09/14/2018 [facility] Automated blood basophil count (count/volume) 0.0 0.0 - 0.1 09/14/2018 [facility] Absolute Immature Granulocyte (auto 0.04 0 - 0.1 09/14/2018 [facility] Serum or plasma sodium measurement (moles/volume) 137 136 - 145 09/14/2018 [facility] Serum or plasma potassium measurement (moles/volume) 5.1 3.5 - 5.1 09/14/2018 [facility] Serum or plasma chloride measurement (moles/volume) 95 98 - 107 09/14/2018 [facility] Serum or plasma carbon dioxide, total measurement (moles/volume) 34 22 - 29 09/14/2018 [facility] Serum or plasma anion gap 13.1 8 - 16 09/14/2018 [facility] Serum or plasma urea nitrogen measurement (mass/volume) 18 7 - 26 09/14/2018 [facility] Serum or plasma creatinine measurement (mass/volume) 0.98 0.72 - 1.25 09/14/2018 [facility] Serum or plasma urea nitrogen/creatinine mass ratio 18 6 - 25 09/14/2018 [facility] Estimated glomerular filtration rate (GFR) determination > 60 60 09/14/2018 [facility] Glucose measurement 133 74 - 118 09/14/2018 [facility] Serum or plasma calcium measurement (mass/volume) 9.1 8.4 - 10.2 09/14/2018 [facility] Serum or plasma creatine kinase measurement (enzymatic activity/volume) 56 30 - 200 09/13/2018 [facility] Serum or plasma creatine kinase MB measurement (mass/volume) 2.30 0 - 5.0 09/13/2018 [facility] Troponin I measurement by highly sensitive enzyme immunoassay 0.012 0 - 0.300 09/13/2018 [facility] Serum or plasma total bilirubin measurement (mass/volume) 0.6 0.2 - 1.2 09/13/2018 [facility] Aspartate Amino Transf (AST/SGOT) 27 5 - 34 09/13/2018 [facility] Serum or plasma alanine aminotransferase measurement (enzymatic activity/volume) 69 0 - 55 09/13/2018 [facility] Serum or plasma protein measurement (mass/volume) 6.6 6.5 - 8.1 09/13/2018 [facility] Serum or plasma albumin measurement (mass/volume) 3.0 3.5 - 5.0 09/13/2018 [facility] Plasma globulin measurement (mass/volume) 3.6 2.3 - 3.5 09/13/2018 [facility] Serum or plasma albumin/globulin mass ratio 0.8 0.8 - 2.0 09/13/2018 [facility] Serum or plasma alkaline phosphatase measurement (enzymatic activity/volume) 60 40 - 150 09/13/2018 [facility] Urine color determination YELLOW YELLOW 09/12/2018 [facility] Urine clarity SL CLOUDY CLEAR 09/12/2018 [facility] Specific gravity of Urine by Test strip 1.025 1.010 - 1.025 09/12/2018 [facility] Urine pH measurement by automated test strip 5.5 5 - 7 09/12/2018 [facility] Urine leukocyte esterase detection by automated test strip SMALL NEGATIVE 09/12/2018 [facility] Urine nitrite detection by automated test strip NEGATIVE NEGATIVE 09/12/2018 [facility] Urine protein detection by automated test strip NEGATIVE NEGATIVE 09/12/2018 [facility] Urine glucose detection by automated test strip 2+ NEGATIVE 09/12/2018 [facility] Urine ketones detection by automated test strip NEGATIVE NEGATIVE 09/12/2018 [facility] Urine urobilinogen measurement by test strip (mass/volume) 0.2 0.2 - 1 09/12/2018 [facility] Urine total bilirubin detection NEGATIVE NEGATIVE 09/12/2018 [facility] Urine erythrocytes detection NEGATIVE NEGATIVE 09/12/2018 [facility] Automated urine sediment leukocyte count by microscopy (number/high power field) >50 0 - 5 09/12/2018 [facility] Erythrocytes detection in urine sediment by light microscopy NONE 0 - 5 09/12/2018 [facility] Bacteria detection in urine sediment by light microscopy MODERATE NONE 09/12/2018 [facility] Epithelial cells detection in urine sediment by light microscopy MODERATE NONE 09/12/2018 [facility] Prothrombin time (PT) in platelet poor plasma by coagulation assay 13.0 11.9 - 14.5 09/12/2018 [facility] INR in Platelet poor plasma by Coagulation assay 0.93 09/12/2018 [facility] Activated partial thromboplastin time (aPTT) in platelet poor plasma bycoagulation assay 32.0 23.8 - 35.5 09/12/2018 [facility] Serum or plasma magnesium measurement (mass/volume) 2.1 1.3 - 2.1 09/12/2018 [facility] BNP Bld-mCnc 185.2 0 - 100 09/12/2018 [facility] Chemistry HGBA1C 7.7 - 5.6 10/18/2014 [facility] Chemistry CHOLESTEROL 98 - 199 10/18/2014 [facility] Chemistry TRIGLYCERIDE 120 - 149 10/18/2014 [facility] Chemistry HDL 31 >=61 10/18/2014 [facility] Chemistry LDL 43 - 99 10/18/2014 Medical [...] Chemistry TRIGLYCERIDE 321 - 149 06/28/2014 [facility] Chemistry HDL 38 >=61 06/28/2014 [facility] [...] ALBUMIN 3.8 3.5 - 5.0 06/28/2014 [facility] Chemistry CALCIUM 9.8 8.5 - 10.5 06/28/2014 [facility] Chemistry SGPT (ALT) 46 0 - 65 06/28/2014 [facility] Chemistry SGOT (AST) 21 0 - 37 06/28/2014 [facility] Chemistry ALK PHOS 78 39 - 136 06/28/2014 [facility] Chemistry PSA 0.56 0.00 - 4.00 06/28/2014 [facility] Hematology HGB 16.6 14.0 - 18.0 06/28/2014 [facility] Hematology HCT 49.9 42.0 - 54.0 06/28/2014 [facility] Hematology PLATELETS 246 K/CMM 133 - 450 06/28/2014 [facility] Serology RPR Non Reactive 06/28/2014 [facility] Serology RPR Non Reactive 06/28/2014 [facility] Serology RPR Non Reactive 06/28/2014 [facility] Urinalysis UA COLOR Yellow 06/28/2014 [facility] Pathology Reports No Data Provided for This Section Diagnostic Reports No Data Provided for This Section Consultation Notes No Data Provided for This Section Discharge Summaries No Data Provided for This Section History and Physicals No Data Provided for This Section Vital Signs Vital Sign Value Date Comments Source Height 72 08/20/2014 [facility] Weight 289.50 08/20/2014 [facility] Respitory Rate 16 08/20/2014 [facility] Systolic (mm Hg) 123 08/20/2014 [facility] Diastolic (mm Hg) 87 08/20/2014 [facility] Heart Rate 81 08/20/2014 [facility] Temperature Oral (F) 97.1 F 08/20/2014 [facility] Temperature Oral (F) 96.9 F 07/16/2014 Medical [...] Provider ADM Date DC Date Status Source [facility] Office Visit [id number] Elisa Langley MD 06/17/2014 06/17/2014 Medical [facility] Lab Report [id number] Elisa Langley MD 06/28/2014 06/28/2014 Medical [facility] Lab Report [id number] Elisa Langley MD 07/04/2014 07/04/2014 Medical [facility] Office Visit [id number] Elisa Langley MD 07/16/2014 07/16/2014 [facility] Office Visit [id number] Elisa Langley MD 08/20/2014 08/20/2014 Medical [facility] Lab Report [id number] Elisa Langley MD 10/18/2014 10/18/2014 Medical [facility] Office Visit [id number] Elisa Langley MD 10/25/2014 10/25/2014 [facility] Outpatient [id number] ELISA LANGLEY 10/25/2014 Active [facility] [id number] SAULO PERRY 02/24/2015 Active [facility] [id number] ELISA LANGLEY 05/26/2015 Active [facility] [id number] ELISA LANGLEY 07/01/2015 [facility] [id number] ELISA LANGLEY 10/17/2015 Active [facility] [id number] ELISA KORIN 01/19/2016 Active [facility] [id number] ELISA KORIN 04/20/2016 [facility] [id number] ELISA KORIN 07/15/2016 [facility] [id number] ELISA KORIN 09/14/2016 Active [facility] [id number] ELISA KORIN 10/13/2016 [facility] [id number] ELISA LANGLEY 12/22/2016 Active [facility] [id number] ELISA LANGLEY 03/24/2017 Active [facility] [id number] ELISA KORIN 06/24/2017 Active [facility] [id number] ELISA LANGLEY 07/22/2017 Active [facility] [id number] ELISA KORIN 10/21/2017 [facility] [id number] ELISA KORIN 01/20/2018 Active [facility] [id number] ELISA KORIN 04/21/2018 [facility] [id number] Elisa Korin 06/26/2018 Active [facility] [id number] Elisa Korin 07/24/2018 [facility] [id number] WILLIAN ALCALA MD 09/12/2018 09/16/2018 [facility] Outpatient [id number] Elisa Flanneryero 09/25/2018 Active [facility] [id number] Elisa Langley 10/23/[address] [facility] Procedures Procedure Code Date Perfomer Comments Source Computed tomography of brain without radiopaque contrast [id number] 09/12/2018 [facility] diabetic foot check [id number] 06/17/2014 yes Medical Group Assessment and Plan [...] WITH DR. JACKMAN IN ONE WEEK. CALL [phone] TO MAKE AN APPOINTMENT. FOLLOW UP WITH YOUR PRIMARY CARE PROVIDER DR. LANGLEY IN ONE WEEK. 09/16/2018 [facility] Social History Social History Date Source Smoking Status Start Date Stop Date Former smoker 09/16/2018 [facility] Family History No Data Provided for This Section Advance Directives Order Name Results Value Date Source Advance Directives Advance Directives Directive Response Recorded Date/Time Does the patient have an advance directive? No 09/12/18 10:38pm If yes, is advance directive on file with [facility]? No 09/12/18 10:38pm If not on file with [facility] will patient provide a copy? No 09/12/18 10:38pm Do you have a Directive to Physician? No 09/12/18 5:47pm Do you have a Medical Power of Portfolio Mgr? No 09/12/18 5:47pm Do you have an [...] rights and responsibilities? Yes 09/12/18 5:47pm 09/16/2018 [facility] Functional Status No Data Provided for This Section
--- OUTSIDE RECORDS SUMMARY | 2018-11-29 19:10 | XMS REPORT | Clinical Summary ---
Author Author [employer] [facility] [employer] Address Unknown Phone Unavailable Care Team Providers Care Dispatcher Clerk Name Role Phone Elisa Munguia MD PCP [...] Advance Directives For more information, please contact: [phone] Patient Appeals Representative Explanation Type Date Recorded Advance Directives, Living Will and Medical Power of Bander Hand
[2018-11-29 20:00] VITALS: BP_SYST 105; BP_SYST 99; BP_DIAS 48; BP_DIAS 61
[2018-11-29 21:00] VITALS: BP 103/63
[2018-11-29] MEDS ORDERED: ENOXAPARIN SOD INJ 40 MG/0.4 ML SYR SC SCH (21:00)
[2018-11-29] MEDS ORDERED: FUROSEMIDE INJ 10 MG/ML 4 ML VIAL ONE (21:09)
[2018-11-29] MEDS ORDERED: PIPER-TAZ 3.375 GM 50 ML ONE (21:09)
[2018-11-29] MEDS: FUROSEMIDE INJ 10 MG/ML 4 ML VIAL IV SCH (21:11)
[2018-11-29 22:00] VITALS: BP 115/66
[2018-11-29 23:00] VITALS: BP 120/71
[2018-11-29 23:59] VITALS: BP 120/71
[2018-11-30] VITALS (15 sets, daily range): BP systolic 116–138; BP diastolic 67–84
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
[2018-11-30] MEDS: PIPER-TAZ 3.375 GM 50 ML IV SCH ×4 (03:16→20:31)
--- NOTE | 2018-11-30 06:25 | NUR ---
pt educated on the outcome Addendum: 11/30/18 at 0626 by Sai Sosa RN Amended: Links added.
[2018-11-30] MEDS: ENOXAPARIN INJ 80 MG/0.8 ML SYR SC SCH ×2 (06:29→17:57)
[2018-11-30] MEDS: FUROSEMIDE INJ 10 MG/ML 4 ML VIAL IV SCH (08:28)
[2018-11-30] MEDS: PANTOPRAZOLE 40 MG 10ML VIAL IV SCH (08:28)
[2018-11-30] MEDS: FUROSEMIDE 40 MG TAB PO SCH ×2 (08:44→17:57)
[2018-11-30] MEDS: METOPROLOL TARTRATE 50 MG TAB PO SCH ×2 (09:39→20:32)
[2018-11-30] MEDS: ASPIRIN 325 MG TAB PO SCH (09:39)
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
[2018-11-30] MEDS ORDERED: CEFTRIAXONE SOD 1 GM/NS 50 ML 50 ML IV SCH (16:00)
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
[2018-11-30] MEDS ORDERED: HYDROXYZINE HCL 25 MG TAB PO PRN (17:45)
[2018-11-30] MEDS ORDERED: BUSPIRONE HCL 30 MG PO SCH (17:45)
[2018-11-30] MEDS: METHADONE HCL 5 MG TAB PO PRN (17:56)
[2018-11-30] MEDS: HYDROCODONE/APAP 10MG-325MG TAB PO PRN (17:56)
[2018-11-30] MEDS: GABAPENTIN 400 MG CAP PO SCH (20:32)
[2018-11-30] MEDS: BUSPIRONE HCL 10 MG TABLET PO SCH (20:32)
[2018-11-30] MEDS: DULOXETINE HCL 30 MG DELAYED RELEASE PO SCH (20:32)
[2018-11-30] MEDS: TRESIBA SC SCH (21:00)
[2018-11-30] MEDS ORDERED: ATORVASTATIN 40 MG TAB PO SCH (21:00)
[2018-11-30] MEDS ORDERED: NON-FORMULARY MEDICATION (Gabapentin 1,200 MG) PO SCH (21:00)
[2018-11-30] MEDS ORDERED: NON-FORMULARY MEDICATION (Atorvastatin Calcium 40 MG) PO SCH (21:00)
--- NOTE | 2018-12-01 02:42 | NUR ---
NOTIFIED DR ALCALA THAT THE PATIENT HAS NOT VOIDED SINCE 1899, HE SAID TO KEEP MONITORING THE PATIENT, BLADDER SCAN IS 226mL. PT DENIES ANY DISCOMFORT AT THIS TIME WILL CONTINUE TO MONITOR
[2018-12-01] MEDS: PIPER-TAZ 3.375 GM 50 ML IV SCH ×3 (03:16→14:10)
[2018-12-01 04:00] VITALS: BP 130/76
[2018-12-01 05:24] LABS: BASOPHILS % 0.2 % (0.0-1.0); EOSINOPHILS # (AUTO) 0.1 (0.0-0.4); EOSINOPHILS % 0.7 % (0.0-6.0); HEMATOCRIT 33.9 % (38.2-49.6); HEMOGLOBIN 10.7 g/dL (14.0-18.0); LYMPHOCYTES # (AUTO) 2.1 (1.0-3.2); LYMPHOCYTES % 21.6 % (18.0-39.1); MEAN CORPUSCULAR HEMOGLOBIN 29.6 pg (28-32); MEAN CORPUSCULAR HGB CONC 31.6 g/dL (31-35); MEAN CORPUSCULAR VOLUME 93.6 fL (81-99); MONOCYTES # (AUTO) 1.2 (0.2-0.8); MONOCYTES % 12.1 % (4.4-11.3); NEUTROPHILS # (AUTO) 6.3 (2.1-6.9); NEUTROPHILS % 64.9 % (38.7-80.0); PLATELET COUNT 281 x10e3/uL (140-360); RED BLOOD COUNT 3.62 x10e6/uL (4.3-5.7); RED CELL DISTRIBUTION WIDTH 14.4 % (11.7-14.4)
[2018-12-01] MEDS: ENOXAPARIN INJ 80 MG/0.8 ML SYR SC SCH (05:49)
[2018-12-01] MEDS ORDERED: LEVOTHYROXINE SODIUM 75 MCG TAB PO SCH (06:00)
[2018-12-01 06:13] LABS: ANION GAP 11.1 mmol/L (8-16); BLOOD UREA NITROGEN 26 mg/dL (7-26); BUN/CREATININE RATIO 25 (6-25); CARBON DIOXIDE 38 mmol/L (22-29); CHLORIDE 97 mmol/L (98-107); CREATININE, SERUM 1.06 mg/dL (0.72-1.25); EST GLOMERULAR FILTRATION RATE > 60 ML/MIN (60-); GLUCOSE 146 mg/dL (74-118); POTASSIUM 4.1 mmol/L (3.5-5.1); SODIUM 142 mmol/L (136-145)
--- NOTE | 2018-12-01 06:53 | Diagnostic Imaging Report ---
EXAMINATION: CHEST SINGLE (PORTABLE) INDICATION: Respiratory distress COMPARISON: Chest radiograph 11/29/2018 FINDINGS: AP view TUBES and LINES: None. LUNGS: Lungs are well inflated. There is no evidence of pneumonia or pulmonary edema. Prominent pulmonary vasculature. PLEURA: No pleural effusion or pneumothorax. HEART AND MEDIASTINUM: Cardiac size is mildly enlarged. BONES AND SOFT TISSUES: No acute osseous lesion. Soft tissues are unremarkable. Sternotomy wires intact. UPPER ABDOMEN: No free air under the diaphragm. IMPRESSION: Cardiomegaly with pulmonary vascular congestion. Signed by: Loyd Marcos DO on 12/01/2018 6:49 AM
[2018-12-01 07:00] VITALS: BP 143/91
[2018-12-01] MEDS ORDERED: GLIMEPIRIDE 2 MG TAB PO SCH (07:30)
[2018-12-01] MEDS ORDERED: METFORMIN HCL 500 MG TAB PO SCH (08:00)
[2018-12-01] MEDS: PANTOPRAZOLE 40 MG 10ML VIAL IV SCH (08:09)
[2018-12-01] MEDS: FUROSEMIDE 40 MG TAB PO SCH (08:10)
[2018-12-01] MEDS: BUSPIRONE HCL 10 MG TABLET PO SCH (08:10)
[2018-12-01] MEDS: DULOXETINE HCL 30 MG DELAYED RELEASE PO SCH ×2 (08:10→14:11)
[2018-12-01] MEDS: ASPIRIN 325 MG TAB PO SCH (08:10)
[2018-12-01] MEDS: GABAPENTIN 400 MG CAP PO SCH ×2 (08:11→14:11)
[2018-12-01] MEDS: METOPROLOL TARTRATE 50 MG TAB PO SCH (08:11)
[2018-12-01] MEDS: BACLOFEN 10 MG TAB PO PRN ×2 (08:11→14:10)
[2018-12-01] MEDS: TRESIBA SC SCH (08:11)
[2018-12-01] MEDS: HYDROCODONE/APAP 10MG-325MG TAB PO PRN (08:12)
[2018-12-01] MEDS: METHADONE HCL 5 MG TAB PO PRN (08:12)
[2018-12-01 09:00] VITALS: BP 129/77
[2018-12-01] MEDS ORDERED: LISINOPRIL 2.5 MG TAB PO SCH (09:00)
[2018-12-01] MEDS ORDERED: NON-FORMULARY MEDICATION (Metformin Hcl 1,000 MG) PO SCH (09:00)
[2018-12-01] MEDS ORDERED: NON-FORMULARY MEDICATION (Lisinopril 5 MG) PO SCH (09:00)
[2018-12-01] MEDS ORDERED: OXYBUTYNIN CHLORIDE 5 MG TAB PO SCH (09:00)
[2018-12-01] MEDS ORDERED: NON-FORMULARY MEDICATION (Glimepiride 4 MG) PO SCH (09:00)
[2018-12-01 11:00] VITALS: BP 115/79
--- NOTE | 2018-12-01 12:45 | NUR ---
Nutrition Screen Note RD Recommendation for Physician: -Rec adding cardiac to ADA diet as medically appropriate -Consult WELT DRAWER if risk of aspiration noted Plan of Care: RD following, monitoring for tolerance and adequacy Nutrition reason for involvement: Diagnosis Primary Diagnose(s): Acute on chronic hypercapnic respiratory failure, syncopal episode, CHF PMH: Diabetes, hypertension, morbid obesity, congestive chronic systolic heart failure with ejection fraction 30%, atrial fibrillation, morbid obesity, high likelihood of obstructive sleep apnea, high likelihood of chronic obstructive pulmonary disease, history of bypass surgery in 2003, history of surgery to the face, and history of bone spur surgery. Ht: 72in Wt: 305lb BMI: 41.4kg/m2 IBW: 178lb +/- 10% RD Assessment: (12/01) Chart reviewed. Labs and meds reviewed. 58yo M, who was admitted for syncopal episode after spinal injection. Visited pt in the room. Pt reported good appetite. Son brought pt [employer], seen on bedside. No complains of nausea or vomiting today. LBM 11/30. Pt denied any chewing difficulty. However, pt complained of trouble swallowing with all food texture and fluids RN recorded 100% meal intake. RD offered diet education but pt was not interested. Weight has been stable. Will continue to monitor and follow. Current Diet: ADA 1800 Malnutrition Evaluation (12/01/2018) The patient does not meet criteria for a specified degree of malnutrition at this time. Will re-evaluate at follow-up as appropriate. Diet Education Needs Assessment: Diet education indicated, pt is not interested. Nutrition Care Level: low Signed: Kelly Castellanos, , RD, LD
--- NOTE | 2018-12-01 14:53 | NUR ---
DR ALCALA TO SEE PT AND IS OK FOR PT TO GO HOME. INSTRUCTED ON PAIN MANAGEMENT TO FOLLOW WITH MD IN ONE WEEK. RX REVIEWED. PT VERBALIZES UNDERSTANDING OF CURRENT DISEASE PROCESSES AND MEDICATIONS. FAMILY VERBALIZE UNDERSTANDING.
== END 2018-12-01 15:41 | disposition home or self-care (01) | DRG 189 ==
LOC: ER 14:19 → ERHOLD 19:07 → ICU 19:10
PROVIDERS: ADMIT Internal Medicine; ATTEND Internal Medicine
DX: J96.22 Acute and chronic respiratory failure with hypercapnia (principal); Z68.41 Body mass index [BMI] 40.0-44.9, adult; I42.9 Cardiomyopathy, unspecified; I50.22 Chronic systolic (congestive) heart failure; D68.9 Coagulation defect, unspecified; I95.1 Orthostatic hypotension; G47.33 Obstructive sleep apnea (adult) (pediatric); J44.9 Chronic obstructive pulmonary disease, unspecified; I25.10 Atherosclerotic heart disease of native coronary artery without angina pectoris; Z95.1 Presence of aortocoronary bypass graft; E78.5 Hyperlipidemia, unspecified; E66.01 Morbid (severe) obesity due to excess calories; F17.210 Nicotine dependence, cigarettes, uncomplicated; Z86.711 Personal history of pulmonary embolism; I11.0 Hypertensive heart disease with heart failure; T50.995A Adverse effect of other drugs, medicaments and biological substances, initial encounter
CPT/HCPCS: 36415; 36600; 70450; 71045; 72131; 80048; 80053; 81001; 82550; 82553; 82805; 82948; 83605; 83880; 84484; 85025; 85610; 85730; 87040; 87086; 93005; 93306; 93880; 94660; 99285; J0696; J1650; J1940; J2310; J2543; J3370; J7030

== ENCOUNTER 2022-06-10 10:57 | Outpatient (RCR) | payer MEDICARE | END 2022-06-18 | LOC: PT 10:57 | PROVIDERS: ATTEND Specialist | DX: M25.571 Pain in right ankle and joints of right foot (principal) ==

== ENCOUNTER 2022-06-22 07:09 | Outpatient (RCR) | payer MEDICARE | END 2022-07-18 | LOC: PT 07:09 | PROVIDERS: ATTEND Specialist | DX: S99.911A Unspecified injury of right ankle, initial encounter (principal) ==